=== PATIENT | female | born 1945 | race Caucasian/White ===

== ENCOUNTER 2025-05-10 13:10 | Inpatient (IN) | payer OTHER, SELFPAY ==
[2025-05-10] VITALS (14 sets, daily range): BP systolic 114–149; BP diastolic 56–80; PULSE 65–82; RESP 12–25; TEMP 36.6–36.9; O2SAT 94–100; BMI 19.5; BMI 21.3
--- NOTE | 2025-05-10 13:16 | DI.RAD.S_ITS ---
PROCEDURE: XR HIP W PEL IF DONE RT 2V INDICATIONS: fall down step TECHNIQUE: AP pelvis with lateral view(s) of the right hip(s). COMPARISON: None. FINDINGS: Bones: Displaced right femoral neck fracture. Pelvic ring appears intact. No suspicious bony lesions. Soft tissues: The visualized bowel gas pattern is normal. No suspicious soft tissue calcifications. IMPRESSION: Displaced right femoral neck fracture. Dictated by: Boo Casillas M.D. on 05/10/2025 at 14:23 Approved by: Boo Casillas M.D. on 05/10/2025 at 14:27
--- NOTE | 2025-05-10 13:19 | DI.RAD.S_ITS ---
PROCEDURE: XR SHOULDER RT MIN 2V INDICATIONS: fall TECHNIQUE: 2 views of the shoulder were acquired. COMPARISON: None. FINDINGS: Bones: Displaced and comminuted right proximal humeral head/neck fracture.. No suspicious bony lesions. Visualized ribs appear intact. Decreased osseous mineralization. Soft tissues: No suspicious soft tissue calcifications. IMPRESSION: Displaced and comminuted right proximal humeral head/neck fracture. Dictated by: Boo Casillas M.D. on 05/10/2025 at 14:21 Approved by: Boo Casillas M.D. on 05/10/2025 at 14:21
--- NOTE | 2025-05-10 13:37 | DI.RAD.S_ITS ---
PROCEDURE: XR HUMERUS RT 2V INDICATIONS: fall onto R arm TECHNIQUE: 2 views of the humerus were acquired. COMPARISON: None. FINDINGS: Bones: Comminuted displaced fracture of the proximal humeral head/neck. No suspicious bony lesions. Soft tissues: No suspicious soft tissue calcifications. IMPRESSION: Comminuted and displaced fracture of the proximal humeral head/neck. Dictated by: Boo Casillas M.D. on 05/10/2025 at 14:21 Approved by: Boo Casillas M.D. on 05/10/2025 at 14:22
--- NOTE | 2025-05-10 13:37 | DI.RAD.S_ITS ---
PROCEDURE: XR ELBOW RT MIN 3V INDICATIONS: fall onto R arm TECHNIQUE: 2 views of the elbow were acquired. COMPARISON: None. FINDINGS: Bones: No fractures or dislocations. No suspicious bony lesions. Soft tissues: No elbow joint effusion. No suspicious soft tissue calcifications. IMPRESSION: No acute osseous abnormality. If pain persists with conservative management, consider repeat x-ray in 10-14 days or cross-sectional imaging. Dictated by: Boo Casillas M.D. on 05/10/2025 at 14:28 Approved by: Boo Casillas M.D. on 05/10/2025 at 14:28
--- NOTE | 2025-05-10 13:43 | ED.FALL ---
HPI - Fall <Mell Rubin PA-C - Last Filed: 05/10/25 19:55> General Chief Complaint: Fall Stated Complaint: Fall, R Shoulder Pain Time Seen by Provider: 05/10/25 13:24 Source: patient and EMS Mode of arrival: EMS History of Present Illness HPI Narrative: This is an 79-year-old female hx hypothryroid, multiple myeloma, and osteoporosis who has kyphosis and chronic low back and joint pains on daily opioids per patient presenting with concern for right shoulder pain and right hip pain after she sustained a fall down 1 step today onto a hardwood floor. Patient normally ambulates with a cane. She was with 2 friends and 1 of them was showing her an area in the hotel they were in, patient states the floor all looked the same and she did not realize it was recessed and she went to take a step and stepped into thin air, fell landing on her right hip and right shoulder. She has not been able to get up and has not tried to bear weight since the incident she endorses significant right hip pain in the crease of her hip and also right shoulder pain in her upper humerus and the back of her right shoulder. She states she is not sure if she hit her head and would prefer not to have a CT scan of her head. She says she remembers falling and did not have any prodrome prior to the fall simply missed a step. Friend that was with her states that she very slightly bumped her head when she fell with no loss of consciousness. She denies any recent illness or other symptoms and but has been taking her regular medications as prescribed. Related Data Home Medications ?Medication ?Instructions ?Recorded ?Confirmed hydrocodone 5 mg-acetaminophen 325 tab PO pain 05/10/25 mg tablet lenalidomide 10 mg capsule PO 05/10/25 levothyroxine 75 mcg tablet 75 mcg PO DAILY 05/10/25 05/10/25 morphine 15 mg immediate release 15 mg PO BID PRN pain 05/10/25 05/10/25 tablet morphine 30 mg immediate release PO 05/10/25 tablet Allergies Allergy/AdvReac Type Severity Reaction Status Date / Time amoxicillin Allergy Rash Verified 05/10/25 13:22 ciprofloxacin Allergy Rash Verified 05/10/25 13:22 Penicillins Allergy Rash Verified 05/10/25 13:21 Sulfa (Sulfonamide Allergy Hives Verified 05/10/25 13:22 Antibiotics) Review of Systems <Mell Rubin PA-C - Last Filed: 05/10/25 19:55> Review of Systems Narrative: See HPI Patient History <Mell Rubin PA-C - Last Filed: 05/10/25 19:55> Social History household members: none lives independently: Yes Smoking Status: Never smoker alcohol intake: current Smoking Status: Former smoker Exam <Mell Rubin PA-C - Last Filed: 05/10/25 19:55> Narrative Exam Narrative: GENERAL: [79] year old patient appears stated age. Well-developed patient, in mild distress. HEAD: Atraumatic. Normocephalic. EYES: Pupils equal round and reactive. Extraocular motions intact. No scleral icterus. No injection or drainage. ENT: Nose without bleeding, purulent drainage. Airway patent. NECK: Trachea midline. Non tender CARDIOVASCULAR: Regular rate and rhythm without murmurs, gallops, or rubs. RESPIRATORY: Clear to auscultation. Breath sounds equal bilaterally. No wheezes, rales, or rhonchi. GASTROINTESTINAL: Abdomen soft, non-tender, nondistended. EXTREMITIES: There is significant tenderness to palpation over the proximal humerus, mild tenderness over the elbow, also tenderness over the posterior shoulder. Significant right hip pain/tenderness and pain in the inguinal crease. Right leg is slightly shortened and rotated out. Flexed with a pillow and blanket beneath it for comfort. Increased hip pain with dorsiflexion and plantar flexion. No edema or joint tenderness. Strong equal bilateral pedal pulses and radial pulses. BACK: There is midline low back tenderness the patient reports is baseline. Nontender without deformity or crepitance. No flank tenderness. NEURO: AOx3. Cranial nerves intact 2 through 12. SKIN: No rash or erythema of visible areas Initial Vital Signs Initial Vital Signs: Vital Signs Pulse Rate 65 05/10/25 13:12 Blood Pressure 139/71 05/10/25 13:12 Pulse Oximetry 100 05/10/25 13:12 <Liss Gay MD - Last Filed: 05/11/25 18:34> Initial Vital Signs Initial Vital Signs: Vital Signs Pulse Rate 65 05/10/25 13:12 Blood Pressure 139/71 05/10/25 13:12 Pulse Oximetry 100 05/10/25 13:12 Course <Mell Rubin PA-C - Last Filed: 05/10/25 19:55> Course Decision to Admit Date: 05/10/25 Decision to Admit time: 16:07 Orders Ordered: Acetaminophen (Acetaminophen 325 Mg Tablet) 650 mg PO Q6H PRN PRN Reason: Fever/Mild Pain (1-3) Last Admin: 05/11/25 15:31 Dose: 650 mg Documented By: REED Acetaminophen (Acetaminophen 325 Mg Tablet) 650 mg PO Q6H PRN PRN Reason: Fever/Mild Pain (1-3) Hydrocodone Bitart/Acetaminophen (Hydrocodone/Acet 5/325 Tablet) 1 tab PO Q4HR PRN PRN Reason: Pain, Moderate (4-6) Hydrocodone Bitart/Acetaminophen (Hydrocodone/Acet 5/325 Tablet) 2 tab PO Q4H PRN PRN Reason: Pain, Severe (7-10) Baclofen (Baclofen 10 Mg Tablet) 5 mg PO Q8H PRN PRN Reason: spasms Last Admin: 05/11/25 06:12 Dose: 5 mg Documented By: Admin: 05/10/25 22:56 Dose: 5 mg Documented By: ANDRIY Docusate Sodium (Docusate 100 Mg Capsule) 100 mg PO BID [facility] Enoxaparin Sodium (Enoxaparin 40 Mg/0.4 Ml Syringe) 40 mg SUBCUT DAILY [facility] Hydromorphone HCl (Hydromorphone 0.5 Mg Inj) 0.5 mg IV Q2H PRN PRN Reason: Pain, Severe (7-10) Sodium Chloride (Normal Saline 0.9%) 1,000 mls @ 100 mls/hr IV CONT CLAY Last Infusion: 05/11/25 14:51 Dose: Infused Documented By: Admin: 05/11/25 04:31 Dose: 100 mls/hr Documented By: Infusion: 05/11/25 04:31 Dose: Infused Documented By: Admin: 05/10/25 19:13 Dose: 100 mls/hr Documented By: MARY KATE Lactated Ringer's (Lactated Ringers) 1,000 mls @ 100 mls/hr IV CONT CLAY Last Admin: 05/11/25 14:58 Dose: 100 mls/hr Documented By: REED Cefazolin Sodium/Dextrose (Ancef) 100 mls @ 200 mls/hr IV Q8H [facility] Stop: 05/12/25 03:29 Levothyroxine Sodium (Levothyroxine 75 Mcg Tablet) 75 mcg PO 0600 [facility] Morphine Sulfate (Morphine Er 15 Mg Tablet) 15 mg PO BID [facility] Last Admin: 05/11/25 14:53 Dose: Not Given Documented By: REED Naloxone HCl (Naloxone 0.4 Mg/Ml Vial) 0.2 mg IV Q2MIN PRN PRN Reason: Opiate Reversal Naloxone HCl (Naloxone 0.4 Mg/Ml Vial) 0.2 mg IV Q2MIN PRN PRN Reason: Opiate Reversal Ondansetron HCl (Ondansetron 4 Mg/2 Ml Inj) 4 mg IV Q8HR PRN PRN Reason: Nausea And Vomiting Ondansetron HCl (Ondansetron 4 Mg/2 Ml Inj) 4 mg IV Q4HR PRN PRN Reason: Nausea And Vomiting Ondansetron HCl (Ondansetron 4 Mg Odt) 4 mg PO Q4HR PRN PRN Reason: Nausea Polyethylene Glycol (Polyethylene Glycol 3350 17 Gm Powd.Pack) 17 gm PO DAILY PRN PRN Reason: Constipation Discontinued Medications Bupivacaine HCl/Epinephrine Bitart (Bupivacaine 0.25% W/ Epi 30 Ml Vial) 60 ml INJ NOW ONE Stop: 05/11/25 11:55 Last Admin: 05/11/25 11:55 Dose: 45 ml Documented By: JUAN R Bupivacaine Liposome (Bupivacaine Liposome 266 Mg/20 Ml Vial) 266 mg INJ INTRA-OP ONE Stop: 05/11/25 08:54 Last Admin: 05/11/25 11:55 Dose: 266 mg Documented By: JUAN R Bupivacaine HCl 60 ml/ (Epinephrine HCl 0.3 mg) 0 ml INJ INTRA-OP ONE Stop: 05/11/25 08:54 Last Admin: 05/11/25 14:52 Dose: Not Given Documented By: REED Epinephrine HCl (Epinephrine 1 Mg/Ml) 1 mg IRR NOW ONE Stop: 05/11/25 11:59 Last Admin: 05/11/25 12:00 Dose: 1 mg Documented By: JUAN R Hydromorphone HCl (Hydromorphone 0.5 Mg Inj) 0.5 mg IV NOW ONE Stop: 05/10/25 13:38 Last Admin: 05/10/25 13:50 Dose: 0.5 mg Documented By: Hydromorphone HCl (Hydromorphone 1 Mg Inj) 0.5 mg IV Q1HR PRN PRN Reason: 7/10 pain or greater Last Admin: 05/10/25 17:47 Dose: 0.5 mg Documented By: Admin: 05/10/25 16:39 Dose: 0.5 mg Documented By: Admin: 05/10/25 14:56 Dose: 0.5 mg Documented By: AVELINO Hydromorphone HCl (Hydromorphone 0.5 Mg Inj) 0.5 mg IV Q2H PRN PRN Reason: Pain, Severe (7-10) Last Admin: 05/10/25 21:49 Dose: 0.5 mg Documented By: Admin: 05/10/25 19:13 Dose: 0.5 mg Documented By: MARY KATE Hydromorphone HCl (Hydromorphone 1 Mg Inj) 1 mg IV Q2H PRN PRN Reason: Pain, Severe (7-10) Last Admin: 05/11/25 08:54 Dose: 1 mg Documented By: Admin: 05/11/25 06:13 Dose: 1 mg Documented By: Admin: 05/11/25 04:27 Dose: 1 mg Documented By: ANDRIY Hydromorphone HCl (Hydromorphone 1 Mg Inj) 0 mg IV Q5MIN PRN PRN Reason: Pain, Moderate (4-6) Hydromorphone HCl (Hydromorphone 1 Mg Inj) 0 mg IV Q5MIN PRN PRN Reason: Pain, Mild (1-3) Hydromorphone HCl (Hydromorphone 1 Mg Inj) 0 mg IV Q5MIN PRN PRN Reason: Pain, Severe (7-10) Hydroxyzine HCl (Hydroxyzine Hcl 25 Mg Tablet) 25 mg PO NOW PRN PRN Reason: Pain, Mild (1-3) Acetaminophen (Ofirmev) 1,000 mg in 100 mls @ 400 mls/hr IV NOW ONE Stop: 05/11/25 09:05 Last Infusion: 05/11/25 09:35 Dose: Infused Documented By: Admin: 05/11/25 09:21 Dose: 400 mls/hr Documented By: CON Lactated Ringer's (Lactated Ringers) 1,000 mls @ 42 mls/hr IV CONT CLAY Last Admin: 05/11/25 12:51 Dose: 42 mls/hr Documented By: Infusion: 05/11/25 12:50 Dose: Infused Documented By: Admin: 05/11/25 10:00 Dose: 42 mls/hr Documented By: CON Cefazolin Sodium/Dextrose (Ancef) 100 mls @ 200 mls/hr IV NOW ONE Stop: 05/11/25 09:22 Last Infusion: 05/11/25 11:25 Dose: Infused Documented By: Admin: 05/11/25 11:20 Dose: 200 mls/hr Documented By: CHAR Cefazolin Sodium/Dextrose (Ancef) 100 mls @ 200 mls/hr IV Q8H [facility] Stop: 05/11/25 23:04 Last Admin: 05/11/25 15:58 Dose: Not Given Documented By: REED Lidocaine/Epinephrine (Lidocaine 1% W/Epi 10ml) 1 ml SUBCUT NOW ONE Stop: 05/11/25 11:57 Last Admin: 05/11/25 11:58 Dose: Not Given Documented By: Methocarbamol (Methocarbamol 500 Mg Tablet) 500 mg PO NOW ONE Stop: 05/10/25 16:31 Last Admin: 05/10/25 16:36 Dose: 500 mg Documented By: AVELINO Non-Formulary Medication (Dilauded) 1 mg IV Q2HR PRN PRN Reason: Pain, Severe (7-10) Oxycodone HCl (Oxycodone Ir 5 Mg Tablet) 5 mg PO Q3H PRN PRN Reason: Pain, Moderate (4-6) Last Admin: 05/11/25 04:27 Dose: 5 mg Documented By: Admin: 05/11/25 00:09 Dose: 5 mg Documented By: Admin: 05/10/25 19:12 Dose: 5 mg Documented By: MARY KATE Oxycodone HCl (Oxycodone Ir 5 Mg Tablet) 5 mg PO PACUNOW PRN PRN Reason: Mild or moderate pain Pregabalin (Pregabalin 75 Mg Capsule) 75 mg PO NOW ONE Stop: 05/11/25 08:54 Last Admin: 05/11/25 09:29 Dose: 75 mg Documented By: CON Tranexamic Acid (Tranexamic Acid 1,000 Mg Vial) 1,000 mg INJ INTRA-OP PRN PRN Reason: Bleeding Last Admin: 05/11/25 12:38 Dose: 1,000 mg Documented By: Admin: 05/11/25 11:33 Dose: 1,000 mg Documented By: CHAR Consultations Consultation #1: Spoke with Dr. Arriola, on-call for Orthopedics. She asks the patient be brought in under the hospitalist service and admitted likely will have surgery tomorrow for a slanted partial hip replacement. Sling for the impacted humeral fracture. Time: 15:34 Consultation #2: Spoke with Dr. Boston, hospitalist who accepts the patient. Time: 16:07 Vital Signs Vital signs: Vital Signs - 8 hr 05/10/25 13:12 05/10/25 13:12 05/10/25 13:20 Temperature 97.8 F Pulse Rate 65 67 Respiratory Rate 17 Blood Pressure 139/71 139/71 Pulse Oximetry 100 100 Oxygen Delivery Method Room Air 05/10/25 13:30 05/10/25 13:30 05/10/25 14:00 Temperature Pulse Rate 65 Respiratory Rate Blood Pressure 149/71 H 141/60 H Pulse Oximetry 99 Oxygen Delivery Method 05/10/25 14:00 05/10/25 14:30 05/10/25 14:30 Temperature Pulse Rate 66 67 Respiratory Rate Blood Pressure 132/62 Pulse Oximetry 99 100 Oxygen Delivery Method 05/10/25 15:00 05/10/25 15:00 05/10/25 15:30 Temperature Pulse Rate 70 Respiratory Rate 21 Blood Pressure 133/62 137/68 Pulse Oximetry 99 Oxygen Delivery Method 05/10/25 15:30 05/10/25 16:00 05/10/25 16:00 Temperature Pulse Rate 75 80 Respiratory Rate 21 Blood Pressure 118/63 Pulse Oximetry 97 96 Oxygen Delivery Method <Liss Gay MD - Last Filed: 05/11/25 18:34> Orders Ordered: Acetaminophen (Acetaminophen 325 Mg Tablet) 650 mg PO Q6H PRN PRN Reason: Fever/Mild Pain (1-3) Last Admin: 05/11/25 15:31 Dose: 650 mg Documented By: REED Acetaminophen (Acetaminophen 325 Mg Tablet) 650 mg PO Q6H PRN PRN Reason: Fever/Mild Pain (1-3) Hydrocodone Bitart/Acetaminophen (Hydrocodone/Acet 5/325 Tablet) 1 tab PO Q4HR PRN PRN Reason: Pain, Moderate (4-6) Hydrocodone Bitart/Acetaminophen (Hydrocodone/Acet 5/325 Tablet) 2 tab PO Q4H PRN PRN Reason: Pain, Severe (7-10) Baclofen (Baclofen 10 Mg Tablet) 5 mg PO Q8H PRN PRN Reason: spasms Last Admin: 05/11/25 06:12 Dose: 5 mg Documented By: Admin: 05/10/25 22:56 Dose: 5 mg Documented By: ANDRIY Docusate Sodium (Docusate 100 Mg Capsule) 100 mg PO BID [facility] Enoxaparin Sodium (Enoxaparin 40 Mg/0.4 Ml Syringe) 40 mg SUBCUT DAILY [facility] Hydromorphone HCl (Hydromorphone 0.5 Mg Inj) 0.5 mg IV Q2H PRN PRN Reason: Pain, Severe (7-10) Sodium Chloride (Normal Saline 0.9%) 1,000 mls @ 100 mls/hr IV CONT [facility] Last Infusion: 05/11/25 14:51 Dose: Infused Documented By: Admin: 05/11/25 04:31 Dose: 100 mls/hr Documented By: Infusion: 05/11/25 04:31 Dose: Infused Documented By: Admin: 05/10/25 19:13 Dose: 100 mls/hr Documented By: MARY KATE Lactated Ringer's (Lactated Ringers) 1,000 mls @ 100 mls/hr IV CONT [facility] Last Admin: 05/11/25 14:58 Dose: 100 mls/hr Documented By: REED Cefazolin Sodium/Dextrose (Ancef) 100 mls @ 200 mls/hr IV Q8H [facility] Stop: 05/12/25 03:29 Levothyroxine Sodium (Levothyroxine 75 Mcg Tablet) 75 mcg PO 0600 [facility] Morphine Sulfate (Morphine Er 15 Mg Tablet) 15 mg PO BID [facility] Last Admin: 05/11/25 14:53 Dose: Not Given Documented By: REED Naloxone HCl (Naloxone 0.4 Mg/Ml Vial) 0.2 mg IV Q2MIN PRN PRN Reason: Opiate Reversal Naloxone HCl (Naloxone 0.4 Mg/Ml Vial) 0.2 mg IV Q2MIN PRN PRN Reason: Opiate Reversal Ondansetron HCl (Ondansetron 4 Mg/2 Ml Inj) 4 mg IV Q8HR PRN PRN Reason: Nausea And Vomiting Ondansetron HCl (Ondansetron 4 Mg/2 Ml Inj) 4 mg IV Q4HR PRN PRN Reason: Nausea And Vomiting Ondansetron HCl (Ondansetron 4 Mg Odt) 4 mg PO Q4HR PRN PRN Reason: Nausea Polyethylene Glycol (Polyethylene Glycol 3350 17 Gm Powd.Pack) 17 gm PO DAILY PRN PRN Reason: Constipation Discontinued Medications Bupivacaine HCl/Epinephrine Bitart (Bupivacaine 0.25% W/ Epi 30 Ml Vial) 60 ml INJ NOW ONE Stop: 05/11/25 11:55 Last Admin: 05/11/25 11:55 Dose: 45 ml Documented By: JUAN R Bupivacaine Liposome (Bupivacaine Liposome 266 Mg/20 Ml Vial) 266 mg INJ INTRA-OP ONE Stop: 05/11/25 08:54 Last Admin: 05/11/25 11:55 Dose: 266 mg Documented By: JUAN R Bupivacaine HCl 60 ml/ (Epinephrine HCl 0.3 mg) 0 ml INJ INTRA-OP ONE Stop: 05/11/25 08:54 Last Admin: 05/11/25 14:52 Dose: Not Given Documented By: REED Epinephrine HCl (Epinephrine 1 Mg/Ml) 1 mg IRR NOW ONE Stop: 05/11/25 11:59 Last Admin: 05/11/25 12:00 Dose: 1 mg Documented By: JUAN R Hydromorphone HCl (Hydromorphone 0.5 Mg Inj) 0.5 mg IV NOW ONE Stop: 05/10/25 13:38 Last Admin: 05/10/25 13:50 Dose: 0.5 mg Documented By: Hydromorphone HCl (Hydromorphone 1 Mg Inj) 0.5 mg IV Q1HR PRN PRN Reason: 7/10 pain or greater Last Admin: 05/10/25 17:47 Dose: 0.5 mg Documented By: Admin: 05/10/25 16:39 Dose: 0.5 mg Documented By: Admin: 05/10/25 14:56 Dose: 0.5 mg Documented By: AVELINO Hydromorphone HCl (Hydromorphone 0.5 Mg Inj) 0.5 mg IV Q2H PRN PRN Reason: Pain, Severe (7-10) Last Admin: 05/10/25 21:49 Dose: 0.5 mg Documented By: Admin: 05/10/25 19:13 Dose: 0.5 mg Documented By: MARY KATE Hydromorphone HCl (Hydromorphone 1 Mg Inj) 1 mg IV Q2H PRN PRN Reason: Pain, Severe (7-10) Last Admin: 05/11/25 08:54 Dose: 1 mg Documented By: Admin: 05/11/25 06:13 Dose: 1 mg Documented By: Admin: 05/11/25 04:27 Dose: 1 mg Documented By: ANDRIY Hydromorphone HCl (Hydromorphone 1 Mg Inj) 0 mg IV Q5MIN PRN PRN Reason: Pain, Moderate (4-6) Hydromorphone HCl (Hydromorphone 1 Mg Inj) 0 mg IV Q5MIN PRN PRN Reason: Pain, Mild (1-3) Hydromorphone HCl (Hydromorphone 1 Mg Inj) 0 mg IV Q5MIN PRN PRN Reason: Pain, Severe (7-10) Hydroxyzine HCl (Hydroxyzine Hcl 25 Mg Tablet) 25 mg PO NOW PRN PRN Reason: Pain, Mild (1-3) Acetaminophen (Ofirmev) 1,000 mg in 100 mls @ 400 mls/hr IV NOW ONE Stop: 05/11/25 09:05 Last Infusion: 05/11/25 09:35 Dose: Infused Documented By: Admin: 05/11/25 09:21 Dose: 400 mls/hr Documented By: CON Lactated Ringer's (Lactated Ringers) 1,000 mls @ 42 mls/hr IV CONT CLAY Last Admin: 05/11/25 12:51 Dose: 42 mls/hr Documented By: Infusion: 05/11/25 12:50 Dose: Infused Documented By: Admin: 05/11/25 10:00 Dose: 42 mls/hr Documented By: CON Cefazolin Sodium/Dextrose (Ancef) 100 mls @ 200 mls/hr IV NOW ONE Stop: 05/11/25 09:22 Last Infusion: 05/11/25 11:25 Dose: Infused Documented By: Admin: 05/11/25 11:20 Dose: 200 mls/hr Documented By: CHAR Cefazolin Sodium/Dextrose (Ancef) 100 mls @ 200 mls/hr IV Q8H [facility] Stop: 05/11/25 23:04 Last Admin: 05/11/25 15:58 Dose: Not Given Documented By: REED Lidocaine/Epinephrine (Lidocaine 1% W/Epi 10ml) 1 ml SUBCUT NOW ONE Stop: 05/11/25 11:57 Last Admin: 05/11/25 11:58 Dose: Not Given Documented By: Methocarbamol (Methocarbamol 500 Mg Tablet) 500 mg PO NOW ONE Stop: 05/10/25 16:31 Last Admin: 05/10/25 16:36 Dose: 500 mg Documented By: AVELINO Non-Formulary Medication (Dilauded) 1 mg IV Q2HR PRN PRN Reason: Pain, Severe (7-10) Oxycodone HCl (Oxycodone Ir 5 Mg Tablet) 5 mg PO Q3H PRN PRN Reason: Pain, Moderate (4-6) Last Admin: 05/11/25 04:27 Dose: 5 mg Documented By: Admin: 05/11/25 00:09 Dose: 5 mg Documented By: Admin: 05/10/25 19:12 Dose: 5 mg Documented By: MARY KATE Oxycodone HCl (Oxycodone Ir 5 Mg Tablet) 5 mg PO PACUNOW PRN PRN Reason: Mild or moderate pain Pregabalin (Pregabalin 75 Mg Capsule) 75 mg PO NOW ONE Stop: 05/11/25 08:54 Last Admin: 05/11/25 09:29 Dose: 75 mg Documented By: CON Tranexamic Acid (Tranexamic Acid 1,000 Mg Vial) 1,000 mg INJ INTRA-OP PRN PRN Reason: Bleeding Last Admin: 05/11/25 12:38 Dose: 1,000 mg Documented By: Admin: 05/11/25 11:33 Dose: 1,000 mg Documented By: CHAR Vital Signs Vital signs: Vital Signs - 8 hr 05/10/25 13:12 05/10/25 13:12 05/10/25 13:20 Temperature 97.8 F Pulse Rate 65 67 Respiratory Rate 17 Blood Pressure 139/71 139/71 Pulse Oximetry 100 100 Oxygen Delivery Method Room Air 05/10/25 13:30 05/10/25 13:30 05/10/25 14:00 Temperature Pulse Rate 65 Respiratory Rate Blood Pressure 149/71 H 141/60 H Pulse Oximetry 99 Oxygen Delivery Method 05/10/25 14:00 05/10/25 14:30 05/10/25 14:30 Temperature Pulse Rate 66 67 Respiratory Rate Blood Pressure 132/62 Pulse Oximetry 99 100 Oxygen Delivery Method 05/10/25 15:00 05/10/25 15:00 05/10/25 15:30 Temperature Pulse Rate 70 Respiratory Rate 21 Blood Pressure 133/62 137/68 Pulse Oximetry 99 Oxygen Delivery Method 05/10/25 15:30 05/10/25 16:00 05/10/25 16:00 Temperature Pulse Rate 75 80 Respiratory Rate 21 Blood Pressure 118/63 Pulse Oximetry 97 96 Oxygen Delivery Method MDM - Fall <Mell Rubin PA-C - Last Filed: 05/10/25 19:55> Differential Diagnosis Differential diagnosis: Likely other (Hip fracture, fall from standing, humeral fracture) Medical Records Medical records narrative: Records in route from [place] Lab Data Attestation: I reviewed the patient's lab results. 05/10/25 13:15 05/10/25 13:15 Labs: Lab Results 05/10/25 Range/Units 13:15 WBC 5.2 (4.5-11.0) X10^3/uL RBC 3.29 L (4.0-5.2) X10^6/uL Hgb 11.1 L (12.0-16.0) g/dL Hct 32.6 L (36-46) % MCV 99.0 (80-100) fL MCH 33.7 (26-34) PG MCHC 34.0 (30-36) % RDW 15.9 H (11.6-14.8) % Plt Count 161 (150-400) X10^3/uL Neut % (Auto) 64.3 (50-75) % Lymph % (Auto) 27.2 (25-40) % Creek % (Auto) 6.5 (3-14) % Eos % (Auto) 1.3 L (2-4) % Baso % (Auto) 0.7 (0-2) % Neut # (Auto) 3300 (7817-3107) /uL Lymph # (Auto) 1400 (8870-0471) /uL Creek # (Auto) 300 (0-900) /uL Eos # (Auto) 100 (0-450) /uL Baso # (Auto) 0 (0-100) /uL PT 11.5 (9.4-12.5) SECONDS INR 1.0 (0.9-1.3) APTT 24 L (25.1-36.5) SECONDS Sodium 135 L (137-145) mmol/L Potassium 3.5 (3.4-5.1) mmol/L Chloride 102 (98-107) mmol/L Carbon Dioxide 23 (22-32) mmol/L BUN 20 H (7-17) mg/dL Creatinine 0.92 (0.52-1.04) mg/dL Estimated GFR > 60 (>60) mL/min BUN/Creatinine Ratio 21.7 (6-22) Glucose 123 H (70-99) mg/dL Calcium 8.4 (8.4-10.2) mg/dL Total Bilirubin 1.3 (0.2-1.3) mg/dL AST 26 (14-36) IU/L ALT 22 (<35) IU/L Alkaline Phosphatase 46 (38-126) U/L Total Protein 6.3 (6.3-8.2) g/dL Albumin 4.1 (3.5-5.0) g/dL Globulin 2.2 (1.7-4.1) g/dL Albumin/Globulin Ratio 1.9 (1.0-2.8) Ethyl Alcohol < 10 (<10) mg/dL Imaging Data Extremity x-ray #1: My Impression: Agree with Radiology interpretation Radiologist's Impression: [address] [address] XRay Report Signed Patient: Susana Galloway MR#: [id number] : 1945 Acct:[id number] Age/Sex: 79 / F Date of Service: 05/10/25 Loc: ED Accession Number: [id number] Procedure: XR humerus RT 2V Ordering Provider: Mell Rubin PA-C PROCEDURE: XR HUMERUS RT 2V INDICATIONS: fall onto R arm TECHNIQUE: 2 views of the humerus were acquired. COMPARISON: None. FINDINGS: Bones: Comminuted displaced fracture of the proximal humeral head/neck. No suspicious bony lesions. Soft tissues: No suspicious soft tissue calcifications. IMPRESSION: Comminuted and displaced fracture of the proximal humeral head/neck. Dictated by: Boo Casillas M.D. on 05/10/2025 at 14:21 Approved by: Boo Casillas M.D. on 05/10/2025 at 14:22 Extremity x-ray #2: My Impression: Agree with Radiology interpretation Radiologist's Impression: [address] [address] XRay Report Signed Patient: Susana Galloway MR#: [id number] : 1945 Acct:[id number] Age/Sex: 79 / F Date of Service: 05/10/25 Loc: ED Accession Number: [id number] Procedure: XR hip w pel RT 2V Ordering Provider: Liss Gay MD PROCEDURE: XR HIP W PEL IF DONE RT 2V INDICATIONS: fall down step TECHNIQUE: AP pelvis with lateral view(s) of the right hip(s). COMPARISON: None. FINDINGS: Bones: Displaced right femoral neck fracture. Pelvic ring appears intact. No suspicious bony lesions. Soft tissues: The visualized bowel gas pattern is normal. No suspicious soft tissue calcifications. IMPRESSION: Displaced right femoral neck fracture. Dictated by: Boo Casillas M.D. on 05/10/2025 at 14:23 Approved by: Boo Casillas M.D. on 05/10/2025 at 14:27 Extremity x-ray #3: My Impression: Agree with Radiology interpretation Radiologist's Impression: [address] [address] XRay Report Signed Patient: Susana Galloway MR#: [id number] : 1945 Acct:[id number] Age/Sex: 79 / F Date of Service: 05/10/25 Loc: ED Accession Number: [id number] Procedure: XR elbow RT min 3V Ordering Provider: Mell Rubin PA-C PROCEDURE: XR ELBOW RT MIN 3V INDICATIONS: fall onto R arm TECHNIQUE: 2 views of the elbow were acquired. COMPARISON: None. FINDINGS: Bones: No fractures or dislocations. No suspicious bony lesions. Soft tissues: No elbow joint effusion. No suspicious soft tissue calcifications. IMPRESSION: No acute osseous abnormality. If pain persists with conservative management, consider repeat x-ray in 10-14 days or cross-sectional imaging. Dictated by: Boo Casillas M.D. on 05/10/2025 at 14:28 Approved by: Boo Casillas M.D. on 05/10/2025 at 14:28 shoulder XR: My Impression: Agree with Radiology interpretation Radiologist's Impression: [address] [address] XRay Report Signed Patient: Susana Galloway MR#: [id number] : 1945 Acct:[id number] Age/Sex: 79 / F Date of Service: 05/10/25 Loc: ED Accession Number: [id number] Procedure: XR shoulder RT 2+ views Ordering Provider: Liss Gay MD PROCEDURE: XR SHOULDER RT MIN 2V INDICATIONS: fall TECHNIQUE: 2 views of the shoulder were acquired. COMPARISON: None. FINDINGS: Bones: Displaced and comminuted right proximal humeral head/neck fracture.. No suspicious bony lesions. Visualized ribs appear intact. Decreased osseous mineralization. Soft tissues: No suspicious soft tissue calcifications. IMPRESSION: Displaced and comminuted right proximal humeral head/neck fracture. Dictated by: Boo Casillas M.D. on 05/10/2025 at 14:21 Approved by: Boo Casillas M.D. on 05/10/2025 at 14:21 [facility] Narrative Medical decision making narrative: This is an 79-year-old female presenting with concern for a fall from standing, mechanical from about an 8 in high step onto a wood floor landing on her right shoulder and hip. Brought in by EMS. X-rays show a impacted humeral neck fracture and a displaced right femoral neck for fracture. Pulses are intact and range of motion reduced in the affected extremities 2nd to pain and injury. Patient received Dilaudid in the emergency department to treat pain, chronically takes opioid pain medication. Her exam did not suggest other injury. She did hit her head very lightly according to her friend who witnessed it but had no loss of consciousness. Impact was almost fully taken by her shoulder and hip. Patient declined a head and neck CT. She had no midline neck tenderness and no cranial nerve deficits. Labs obtained were unremarkable including coags. Consult orthopedic on-call physician Dr. Lutz who advises bring the patient in with anticipated surgery for her hip tomorrow and NPO at midnight. And bring in under hospitalist. Hospitalist contacted and patient was admitted to Dr. Boston. <Liss Gay MD - Last Filed: 05/11/25 18:34> Lab Data Labs: Lab Results 05/10/25 Range/Units 13:15 WBC 5.2 (4.5-11.0) X10^3/uL RBC 3.29 L (4.0-5.2) X10^6/uL Hgb 11.1 L (12.0-16.0) g/dL Hct 32.6 L (36-46) % MCV 99.0 (80-100) fL MCH 33.7 (26-34) PG MCHC 34.0 (30-36) % RDW 15.9 H (11.6-14.8) % Plt Count 161 (150-400) X10^3/uL Neut % (Auto) 64.3 (50-75) % Lymph % (Auto) 27.2 (25-40) % [place] % (Auto) 6.5 (3-14) % Eos % (Auto) 1.3 L (2-4) % Baso % (Auto) 0.7 (0-2) % Neut # (Auto) 3300 (4080-8651) /uL Lymph # (Auto) 1400 (6775-3905) /uL [place] # (Auto) 300 (0-900) /uL Eos # (Auto) 100 (0-450) /uL Baso # (Auto) 0 (0-100) /uL PT 11.5 (9.4-12.5) SECONDS INR 1.0 (0.9-1.3) APTT 24 L (25.1-36.5) SECONDS Sodium 135 L (137-145) mmol/L Potassium 3.5 (3.4-5.1) mmol/L Chloride 102 (98-107) mmol/L Carbon Dioxide 23 (22-32) mmol/L BUN 20 H (7-17) mg/dL Creatinine 0.92 (0.52-1.04) mg/dL Estimated GFR > 60 (>60) mL/min BUN/Creatinine Ratio 21.7 (6-22) Glucose 123 H (70-99) mg/dL Calcium 8.4 (8.4-10.2) mg/dL Total Bilirubin 1.3 (0.2-1.3) mg/dL AST 26 (14-36) IU/L ALT 22 (<35) IU/L Alkaline Phosphatase 46 (38-126) U/L Total Protein 6.3 (6.3-8.2) g/dL Albumin 4.1 (3.5-5.0) g/dL Globulin 2.2 (1.7-4.1) g/dL Albumin/Globulin Ratio 1.9 (1.0-2.8) Ethyl Alcohol < 10 (<10) mg/dL Discharge Plan Departure Patient Disposition: Admitted As Inpatient Clinical Impression: Closed hip fracture Qualifiers: Encounter type: initial encounter Laterality: right Qualified Code(s): S72.001A - Fracture of unspecified part of neck of right femur, initial encounter for closed fracture Fx humeral neck Qualifiers: Encounter type: initial encounter Fracture type: closed Laterality: right Qualified Code(s): S42.211A - Unspecified displaced fracture of surgical neck of right humerus, initial encounter for closed fracture Fall from standing Qualifiers: Encounter type: initial encounter Qualified Code(s): W19.XXXA - Unspecified fall, initial encounter Admit Date/Time: 05/10/25 16:14 Admit Provider: Dimitris Boston ED Sign-out <Liss Gay MD - Last Filed: 05/11/25 18:34> Cosign ED Attending Cosignature Attestation: I was immediately available in the department for consultation throughout this patient's visit. Liss Gay MD
[2025-05-10] MEDS: HYDROMORPHONE 0.5 MG INJ IV ×3 (13:50→21:49)
[2025-05-10 14:30] LABS: Add Manual Diff / Slide Review NO; Hematocrit 32.6 % (36-46); Hemoglobin 11.1 g/dL (12.0-16.0); Lymphocytes Absolute Auto 1400 /uL (1100-4500); Mean Corpuscular HGB Conc 34.0 % (30-36); Mean Corpuscular Hemoglobin 33.7 PG (26-34); Mean Corpuscular Volume 99.0 fL (80-100); Platelet Count 161 X10^3/uL (150-400)
[2025-05-10 14:32] LABS: INR 1.0 (0.9-1.3); Prothrombin Time 11.5 SECONDS (9.4-12.5)
[2025-05-10 14:35] LABS: PTT Partial Thromboplastin Tim 24 SECONDS (25.1-36.5)
[2025-05-10 14:52] LABS: Alanine Aminotransferase 22 IU/L (<35); Albumin 4.1 g/dL (3.5-5.0); Albumin Globulin Ratio 1.9 (1.0-2.8); Alkaline Phosphatase 46 U/L (38-126); Blood Urea Nitrogen 20 mg/dL (7-17); Calcium 8.4 mg/dL (8.4-10.2); Carbon Dioxide 23 mmol/L (22-32); Chloride 102 mmol/L (98-107); Estimated Glomerular Filt Rate > 60 mL/min (>60); Ethanol (ETOH) < 10 mg/dL (<10); Globulin 2.2 g/dL (1.7-4.1); Glucose 123 mg/dL (70-99); HEMOLYSIS < 15 (0-50); Potassium 3.5 mmol/L (3.4-5.1); Sodium 135 mmol/L (137-145); Total Protein 6.3 g/dL (6.3-8.2)
[2025-05-10] MEDS: HYDROMORPHONE 1 MG INJ 0.5 MG IV ×3 (14:56→17:47)
--- NOTE | 2025-05-10 19:02 | PM.HP.1 ---
History of Present Illness History of Present Illness Date Patient Seen: 05/10/25 Chief complaint: Fall, R Shoulder Pain Narrative: This is a pleasant 79-year-old female with history of multiple myeloma and hypothyroidism who is visiting a friend in [place]. She lives in the [place] area. She had a ground level fall and broke her right hip and proximal humerus. The patient was given pain medication in the emergency department, and Orthopedics was consulted. The plan is for operative repair with a hemiarthroplasty on May 11. The patient will be nothing by mouth at midnight. She denies any other injuries or recent illnesses or symptoms. She does note that she was do not resuscitate. She was 2 daughters in [place]. [facility] Social History Smoking Status: Former smoker Meds Home Medications and Allergies Home Medications ?Medication ?Instructions ?Recorded ?Confirmed ?Type hydrocodone 5 mg-acetaminophen 325 tab PO pain 05/10/25 History mg tablet lenalidomide 10 mg capsule PO 05/10/25 History levothyroxine 75 mcg tablet 75 mcg PO DAILY 05/10/25 05/10/25 History morphine 15 mg immediate release 15 mg PO BID PRN pain 05/10/25 05/10/25 History tablet morphine 30 mg immediate release PO 05/10/25 History tablet Allergies Allergy/AdvReac Type Severity Reaction Status Date / Time amoxicillin Allergy Rash Verified 05/10/25 13:22 ciprofloxacin Allergy Rash Verified 05/10/25 13:22 Penicillins Allergy Rash Verified 05/10/25 13:21 Sulfa (Sulfonamide Allergy Hives Verified 05/10/25 13:22 Antibiotics) Review of Systems Review of Systems Narrative: All else reviewed and otherwise unremarkable except as noted in the history and physical. Exam Vital Signs (past 8 hours): - 05/10/25 13:12 05/10/25 13:12 05/10/25 13:20 Temperature 97.8 F Pulse Rate 65 67 Respiratory Rate 17 Blood Pressure 139/71 139/71 Pulse Oximetry 100 100 Oxygen Delivery Method Room Air 05/10/25 13:30 05/10/25 13:30 05/10/25 14:00 Temperature Pulse Rate 65 Respiratory Rate Blood Pressure 149/71 H 141/60 H Pulse Oximetry 99 Oxygen Delivery Method 05/10/25 14:00 05/10/25 14:30 05/10/25 14:30 Temperature Pulse Rate 66 67 Respiratory Rate Blood Pressure 132/62 Pulse Oximetry 99 100 Oxygen Delivery Method 05/10/25 15:00 05/10/25 15:00 05/10/25 15:30 Temperature Pulse Rate 70 Respiratory Rate 21 Blood Pressure 133/62 137/68 Pulse Oximetry 99 Oxygen Delivery Method 05/10/25 15:30 05/10/25 16:00 05/10/25 16:00 Temperature Pulse Rate 75 80 Respiratory Rate 21 Blood Pressure 118/63 Pulse Oximetry 97 96 Oxygen Delivery Method 05/10/25 16:30 05/10/25 16:30 05/10/25 17:00 Temperature Pulse Rate 80 Respiratory Rate Blood Pressure 114/59 L 114/56 L Pulse Oximetry 98 Oxygen Delivery Method 05/10/25 17:00 05/10/25 17:30 05/10/25 17:30 Temperature Pulse Rate 79 79 Respiratory Rate 25 H 16 Blood Pressure 119/60 Pulse Oximetry 97 96 Oxygen Delivery Method 05/10/25 18:00 05/10/25 18:00 05/10/25 18:30 Temperature Pulse Rate 81 79 Respiratory Rate 12 Blood Pressure 122/80 Pulse Oximetry 96 94 Oxygen Delivery Method 05/10/25 18:30 Temperature Pulse Rate Respiratory Rate Blood Pressure 126/65 Pulse Oximetry Oxygen Delivery Method Oxygen Delivery Method Room Air Narrative Exam Narrative: NAD, alert and oriented, fluent speech, calm. Normocephalic skull, EOMI, anicteric sclera, symmetric pupils. Oropharynx unremarkable, no droop. Neck supple, midline trachea, no adenopathy. Lungs clear, normal rate and effort. Heart regular, no murmur gallop or rub. Abdomen is soft, non distended and non tender. Extremities are free of edema. Skin is free of rash or lesions. Joints are not swollen or deformed. Judgment appears to be normal. Significant swelling and ecchymosis around the right shoulder. Objective Imaging Multiple studies:: Radiologist's impression: Shoulder x-ray: Comminuted and displaced fracture of the proximal humeral head/neck. Hip x-ray: Displaced right femoral neck fracture. Labs 05/10/25 13:15 05/10/25 13:15 Labs: Laboratory Results - last 24 hr 05/10/25 13:15 WBC 5.2 RBC 3.29 L Hgb 11.1 L Hct 32.6 L MCV 99.0 MCH 33.7 MCHC 34.0 RDW 15.9 H Plt Count 161 Neut % (Auto) 64.3 Lymph % (Auto) 27.2 [place] % (Auto) 6.5 Eos % (Auto) 1.3 L Baso % (Auto) 0.7 Neut # (Auto) 3300 Lymph # (Auto) 1400 [place] # (Auto) 300 Eos # (Auto) 100 Baso # (Auto) 0 PT 11.5 INR 1.0 APTT 24 L Sodium 135 L Potassium 3.5 Chloride 102 Carbon Dioxide 23 BUN 20 H Creatinine 0.92 Estimated GFR > 60 BUN/Creatinine Ratio 21.7 Glucose 123 H Calcium 8.4 Total Bilirubin 1.3 AST 26 ALT 22 Alkaline Phosphatase 46 Total Protein 6.3 Albumin 4.1 Globulin 2.2 Albumin/Globulin Ratio 1.9 Ethyl Alcohol < 10 Assessment & Plan Assessment & Plan narrative: 1. Right femoral neck fracture, present on admission and active. 2. Right humerus fracture, present on admission and active. 3. Ground level fall prior to admission, stable. 4. Multiple myeloma, stable. 5. Hypothyroidism, stable. Plan: -IV fluids and pain medications. NPO at midnight. -orthopedics has been consulted, anticipate hemiarthroplasty tomorrow. -DVT prophylaxis will start after surgery. -we will resume routine medications tomorrow. DNR, confirmed time of admission. Anticipate 2 midnights in the hospital, supports inpatient status. Proxy decision makers are [facility], in [place]. Time-Based Coding :: 35 min spent with patient and on the chart (including review of chart, obtaining history, exam, reviewing outside data, placing orders, documenting exam and treatment plan, and counseling patient) on 05/10. Quality MIPS - Admit I confirm the patient?s Advance Care Plan is present, Code status is documented, Surrogate decision maker is in patient?s record [If Yes, STOP here]: Yes The patient?s Advance Care plan is not present because I confirmed today that the patient does not wish or was not able to name a surrogate decision maker or provide an Advance Care Plan.: Yes
[2025-05-10] MEDS: OXYCODONE IR 5 MG TABLET PO (19:12)
[2025-05-10] MEDS: SODIUM CHLORIDE 0.9% 1,000 ML 100 ML IV (19:13)
[2025-05-10] MEDS: BACLOFEN 10 MG TABLET 5 MG PO (22:56)
[2025-05-11] VITALS (22 sets, daily range): BP systolic 86–188; BP diastolic 43–77; PULSE 14–89; RESP 11–99; TEMP 36.4–37.4; O2SAT 4–100; BMI 21.3
--- NOTE | 2025-05-11 | DI.RAD.S_ITS ---
PROCEDURE: XR PELVIS 1-2V INDICATIONS: POST OP TECHNIQUE: 1 view(s) of the pelvis acquired. COMPARISON: [facility], , XR PELVIS 1-2V, 05/11/2025, 11:56. FINDINGS AND IMPRESSION: Right hip arthroplasty appears to be in expected position. Mild left hip arthrosis also present. Surrounding postoperative soft tissue changes are present. Dictated by: Kilo King M.D. on 05/11/2025 at 13:30 Approved by: Kilo King M.D. on 05/11/2025 at 13:31
[2025-05-11] MEDS: OXYCODONE IR 5 MG TABLET PO ×2 (00:09→04:27)
[2025-05-11] MEDS: HYDROMORPHONE 1 MG INJ IV ×3 (04:27→08:54)
[2025-05-11] MEDS: SODIUM CHLORIDE 0.9% 1,000 ML 100 ML IV (04:31)
[2025-05-11] MEDS: BACLOFEN 10 MG TABLET 5 MG PO (06:12)
--- NOTE | 2025-05-11 06:36 | PC.NURSE ---
Addendum entered by Vera Espinoza R.N. 05/11/25 07:02: 05/10- 19:45 It was reported to me that patient refused lab draw for type and screen. 05/11/25- 07:00- Patient refused 2nd screen for blood. Original Note: 05/10/25- 19:30 Assumed care of patient at 19:30. Pt refused removal of transfer sheet r/t pain, stating No, why do I have to do it tonight when I am going to surgery tomorrow, education provided on removal of sheet. Refused skin check, noted large purple bruise to right shoulder. Refused catheter care in the morning. Pain medications given per JAN.
--- NOTE | 2025-05-11 08:53 | DI.RAD.S_ITS ---
PROCEDURE: XR PELVIS 1-2V INDICATIONS: surgery INTER OP TECHNIQUE: 1 view of the lower pelvis acquired. COMPARISON: None. FINDINGS AND IMPRESSION: Right hip operative images, currently with the femoral stem in place. Please see operative note for full details. Dictated by: Kilo King M.D. on 05/11/2025 at 11:49 Approved by: Kilo King M.D. on 05/11/2025 at 11:50
--- NOTE | 2025-05-11 08:53 | PM.CN ---
History of Present Illness Consult details Date Patient Seen: 05/11/25 Time Patient Seen: 08:53 Chief complaint: Fall, R Shoulder Pain Reason for consult: Right femoral neck fracture, right proximal humerus fracture Requesting provider: Mell Rubin Narrative: The patient was a 79-year-old right-hand dominant female visiting from [place] with a friend in [place] that had a ground level fall onto her right side on May 10, 2025 sustained injury to her right hip and right shoulder. She was brought to [facility] Emergency room and found to have a right displaced femoral neck fracture and a right proximal humerus fracture. She also has multiple myeloma. She is currently treated with Revlimid for her multiple myeloma. She has chronic anemia and chronic pain and at baseline takes morphine sulfate 15 mg b.i.d. and 3-4 Glentana 5/325 during the day. She has daughters and [place] that can help with her care. One will be flying to [place] to help. She endorses pain in her shoulder and humerus and right hip. Denies fevers chills nausea vomiting shortness for breath. Does state she has difficulty tolerating anti-inflammatories with a bother her GI tract. Recently her Revlimid has been decreased to every other day because it was ?working too well? this is managed by an oncologist in [place] Previously lived independently and [place] ambulated without assistive devices in the house and used a cane when she left the house. Meds Home Medications and Allergies Home Medications ?Medication ?Instructions ?Recorded ?Confirmed ?Type hydrocodone 5 mg-acetaminophen 325 tab PO pain 05/10/25 History mg tablet lenalidomide 10 mg capsule PO 05/10/25 History levothyroxine 75 mcg tablet 75 mcg PO DAILY 05/10/25 05/10/25 History morphine 15 mg immediate release 15 mg PO BID PRN pain 05/10/25 05/10/25 History tablet morphine 30 mg immediate release PO 05/10/25 History tablet Allergies Allergy/AdvReac Type Severity Reaction Status Date / Time amoxicillin Allergy Rash Verified 05/10/25 13:22 ciprofloxacin Allergy Rash Verified 05/10/25 13:22 Penicillins Allergy Rash Verified 05/10/25 13:21 Sulfa (Sulfonamide Allergy Hives Verified 05/10/25 13:22 Antibiotics) Review of Systems Review of Systems Narrative: Multiple myeloma, chronic pain on daily narcotic medication long and immediate action Exam Vital Signs (past 8 hours): - 05/11/25 08:00 Temperature 99.3 F Pulse Rate 78 Respiratory Rate 17 Blood Pressure 188/59 H Pulse Oximetry 97 Oxygen Flow Rate 0 Oxygen Delivery Method Room Air Oxygen Flow Rate 0 Narrative Exam Narrative: Alert and oriented female in no acute distress lying in hospital bed Lungs clear to auscultation Heart regular rate and rhythm Right hip flexed and rotated shortened. Demonstrates active dorsiflexion and plantar flexion. Palpable dorsalis pedis pulse. Calf and thigh soft. Knee without effusion. Pain along the proximal hip and groin motor exam deferred due to known fracture. Right upper extremity demonstrates wrist and finger range of motion. Forearm is soft and hand without swelling. There is bruising of the proximal upper arm near the shoulder in the area of the known proximal humerus fracture. No deformity of the clavicle. Tenderness of the proximal humerus. Palpable radial pulse. Demonstrates finger and thumb flexion and extension and interosseous function. No restrictions in motion of the left lower extremity or left upper extremity. Objective Imaging AP pelvis and right hip x-ray: My impression: Displaced femoral neck fracture right Radiologist's impression: Displaced femoral neck fracture right Right shoulder x-ray: My impression: Right moderate displaced proximal humerus fracture comminuted Labs 05/10/25 13:15 05/10/25 13:15 Labs: Laboratory Results - last 24 hr 05/10/25 05/11/25 13:15 05:29 WBC 5.2 RBC 3.29 L Hgb 11.1 L Hct 32.6 L MCV 99.0 MCH 33.7 MCHC 34.0 RDW 15.9 H Plt Count 161 Neut % (Auto) 64.3 Lymph % (Auto) 27.2 [place] % (Auto) 6.5 Eos % (Auto) 1.3 L Baso % (Auto) 0.7 Neut # (Auto) 3300 Lymph # (Auto) 1400 [place] # (Auto) 300 Eos # (Auto) 100 Baso # (Auto) 0 PT 11.5 INR 1.0 APTT 24 L Sodium 135 L Potassium 3.5 Chloride 102 Carbon Dioxide 23 BUN 20 H Creatinine 0.92 Estimated GFR > 60 BUN/Creatinine Ratio 21.7 Glucose 123 H Calcium 8.4 Total Bilirubin 1.3 AST 26 ALT 22 Alkaline Phosphatase 46 Total Protein 6.3 Albumin 4.1 Globulin 2.2 Albumin/Globulin Ratio 1.9 Ethyl Alcohol < 10 Blood Type O Positive Antibody Screen Negative [facility] Comment: Multiple myeloma Chronic pain Social History household members: none lives independently: Yes Tobacco & Substance Use Smoking Status: Never smoker alcohol intake: current Assessment & Plan Assessment and plan (1) Fx humeral neck: Qualifiers: Encounter type: initial encounter Fracture type: closed Laterality: right Qualified Code(s): S42.211A - Unspecified displaced fracture of surgical neck of right humerus, initial encounter for closed fracture Status: Acute (2) Closed hip fracture: Qualifiers: Encounter type: initial encounter Laterality: right Qualified Code(s): S72.001A - Fracture of unspecified part of neck of right femur, initial encounter for closed fracture Status: Acute (3) Osteoporotic hip fracture: Qualifiers: Encounter type: initial encounter Laterality: right Qualified Code(s): M80.051A - Age-related osteoporosis with current pathological fracture, right femur, initial encounter for fracture Status: Acute (4) Multiple myeloma: Qualifiers: Multiple myeloma remission status: unspecified Qualified Code(s): C90.00 - Multiple myeloma not having achieved remission Status: Acute Plan Patient was displaced comminuted fracture of her right proximal humerus. Discussed alignment is appropriate for initial nonoperative treatment in a sling for this fracture but discussed over time these fractures can displace or collapse and may go onto requiring surgical treatment but at this point treatment nonoperatively in a sling is appropriate but we will need to be followed with serial radiographs on an outpatient basis. The patient has a displaced femoral neck fracture of her right hip. This fracture is indicated for surgery with a cemented hemiarthroplasty to allow mobilization weight-bearing and pain control. We discussed the risks and benefits of the procedure. Discussed it is designed to allow mobilization and help reduce the complications associated with prolonged immobility. The patient has chronic pain and multiple myeloma she has been on chronic pain medication. We will restart these medications discussed she may need higher level of medications as well. She previously states she was not tolerated oxycodone well but does better with Glentana and takes morphine sulfate twice a day at baseline. She may need help with discharge whether that is traveling with family for help back to [place] or short-term long term stay discussed she would work with physical therapy after surgery on her mobilization and we would see how her progresses. She will be weightbear as tolerated with a assistive device following the hip surgery but will require sling use on the right upper extremity. The risks and benefits of the procedure have been discussed with the patient and given the opportunity to ask questions. The risks of surgery include but are not limited to infection, malunion, nonunion, persistence of pain, damage to nerves and blood vessels, posttraumatic arthritis, DVT, PE, coardiopulmonary complications and . The patient expressed a thorough understanding of the risks and benefits of surgery and has elected to proceed. Consent was signed in the office today. High level medical decision-making. Inpatient admission required. Anticipate 2-3 days in the hospital Time-Based Coding :: [TOTAL MINUTES] spent with patient and on the chart (including review of chart, obtaining history, exam, reviewing outside data, placing orders, documenting exam and treatment plan, and counseling patient) on [DATE].
[2025-05-11] MEDS: ACETAMINOPHEN IV 1,000 MG/100 ML VIAL 400 MG IV (09:21)
[2025-05-11] MEDS: PREGABALIN 75 MG CAPSULE PO (09:29)
--- NOTE | 2025-05-11 09:35 | P.OP_ITS ---
Operative Date/Time/Diagnoses Date of procedure: 05/11/25 Time of procedure: 10:30 Pre-op diagnosis: Right closed femoral neck fracture, right osteoporotic hip fracture, right proximal humerus fracture, multiple myeloma Post-op diagnosis: same Procedure & Clinicians Procedure: 1. Cemented hemiarthroplasty right hip for hip fracture CPT code 86997 2. Closed treatment right proximal humerus fracture without manipulation CPT code 39551 modifier 59 for separate site Same procedure(s) as scheduled: Yes Indications: The patient was an 79-year-old right-hand dominant female with multiple myeloma that had a ground level fall onto the right side she sustained a comminuted right proximal humerus fracture and a displaced right femoral neck fracture. She was indicated for operative treatment of her right femoral neck fracture and nonoperative treatment of her proximal humerus fracture. The risks and benefits of the procedure have been discussed with the patient and given the opportunity to ask questions. The risks of surgery include but are not limited to infection, malunion, fracture, nonunion, leg length discrepancy, persistence of pain, damage to nerves and blood vessels, posttraumatic arthritis, need for additional procedures, DVT, PE, cardiopulmonary complications and . The patient expressed a thorough understanding of the risks and benefits of surgery and has elected to proceed. Consent was signed. During the operation, the services of a physician supply assistant were medically indicated and necessary to provide the exposure of the operative site for the surgical procedure and to maintain the limb in a proper position to carry out the operation safely and efficiently. Without a qualified content assistant being present this would extended the operative procedure and made the procedure technically more difficult to perform. Surgeon: Kasandra Arriola Stock Broker Supervisor: Gian Collazo Anesthesia Type: General and Local Operative Notes Findings: Comminuted right proximal humerus fracture, impacted, appropriate alignment for initial nonoperative treatment in a sling. Displaced right femoral neck fracture of the right hip indicated for surgical fixation with hemiarthroplasty Closure Type: primary Specimen(s): none sent Prosthetic devices, grafts, tissues, transplants, or devices: [employer] [employer] Nephew Synergy cemented hemiarthroplasty Synergy stem cemented 12 synergy cobalt chromium Neck +4 taper sleeve Head 45mm unipolar cobalt chromium tandem Applied: other (Dressing) Estimated Blood Loss (mL): 200 Blood products transfused: none Tourniquet time (min): 0 Procedure in detail: Hemiarthroplasty for femoral neck fracture CPT code 11751. Patient was seen in the preoperative area the site of surgery was marked and informed consent confirmed. This was the right hip. The patient was brought back to the operating room by the anesthesia team. Patient was positioned supine on the operative table. General anesthetic was ad ministered. Patient was then moved into the lateral position. The hip relay assembler positioner pads were then placed. A well-padded axillary roll was placed and the arms were appropriately positioned. The affected lower extremity was prepped and draped from the ankle to the iliac crest with ChloraPrep in the standard fashion sterile drapes were placed. Formal time-out procedure was performed confirming the patient's side and site of surgery, presence of informed consent, administration of appropriate preoperative antibiotics. Hip was approached through a standard posterior approach. Dissection was carried down through the skin and subcutaneous tissues sharply through the skin and then with the Bovie through the subcutaneous tissues. The fascia melody was exposed and opened. Fascia was opened using the Bovie and the gluteus amadou was spread with finger retraction. The Charnley retractor was placed. The inflamed bursa was resected. The piriformis was then identified. A Cobra retractor was placed under the gluteus medius to help expose the external rotators. The piriformis and short external rotators were tagged with a 2 FiberWire and divided of the trochanter. These were then retracted posteriorly to protect sciatic nerve. The femur was then flexed and internally rotated to present the femoral neck and the fracture. A corkscrew and a Wiggins were used to remove the femoral head from the acetabulum. This was measured to fit a 45 mm head. Next the femur was presented. A clean-up neck cut was made in a minimal fashion. The trial head size was trialed in the acetabulum. Attention was then turned to the femur. The canal was opened with a box cutting osteotome. This followed by the canal finder and a lateralizing Reamer. The tapered reamers were then used up to a size 12 Then broaching was sequentially done up to a size 12. Trial components were placed. The patient was stable in the position of sleep, squatting and could be put through a range of motion with 70? of internal rotation without dislocation. This was felt to be appropriate. An intraop a AP pelvis x-ray was obtained to assess component position. Final components were then selected. The final stem was a size 12th. Femoral canal was prepared . The distal small restrictor was placed approximately 1 cm distal to the end of the planned implant. The bone was meticulously cleaned with pulse lavage. Canal was then packed with epi soaked gauze. Two packages of cement were mixed and carefully pressurized into the femoral canal. The femoral component was then placed without difficulty. This was held in place until the cement hardened. The repeat trial reduction showed good range of motion and stability. The final head and neck were then carefully placed. The wound was irrigated. The capsule and muscular flap was repaired with the 2. Ethibond. Next the short external rotators were repaired to the greater trochanter through drill holes in the greater trochanter using the 2.5 drill and a Hugo [employer] Debra Natural suture Passer. These were tied with the leg in abduction. The wound was then irrigated again. The fascia melody was closed with 0 Vicryl and the subcutaneous layer was closed with 2-0 Vicryl and the skin with Stratafix Monocryl and Dermabond. An Aquacel dressing was placed. A pillow was placed for protection. The drapes removed . A sling was placed on the right upper ext remity. And the patient was taken to the recovery room in good condition. There no immediate complications from this procedure. All counts were correct. Postoperative AP pelvis x-ray was obtained in the PACU showed appropriate alignment of the cemented hip hemiarthroplasty with no evidence of fracture. Complications: none Post-operative Condition: stable Disposition: PACU Plan for aftercare: Weightbear as tolerated with the assistive devices. For the right hip fracture. Posterior hip precautions x6 weeks. Nonweightbearing right upper extremity and utilize sling for the right proximal humerus fracture we will need follow up x-rays in 1-2 weeks to follow alignment. No active or passive motion of the shoulder for 2 weeks and start Codman exercises after follow up x-ray in 1-2 weeks May use wrist and hand and elbow. Lovenox for DVT prophylaxis x4 weeks postop. Follow up in Orthopedic Clinic in 10-14 days. May follow up locally here with [facility] and Dr. Arriola were alternatively may establish care back home in [place]. But should have a repeat x-ray of her right proximal humerus in 1-2 weeks
[2025-05-11] MEDS: LACTATED RINGERS 1,000 ML 42 ML IV ×2 (10:00→12:51)
--- NOTE | 2025-05-11 11:17 | CM.DANOTE ---
B DCP Assessment Note pt is a 79yo F admitted after a GLF resulted in a right hip fx and right should fx. plan is for OR today for hip repair and likely arm sling for shoulder. pt in surgery during attempted DCP assessment PCP none listed, likely in [place] where pt is from Payer Medicare advantage (unclear which kind?) and Medicare A. EDUARDO reviewed EMR per chart/provider in morning rounds, pt lives in [place] indep at baseline. DME=cane. here visiting [facility] and [facility]. per provider, pt strong preference post op is to return home with dtr support, dtr on way from [place] to take pt home post op. post op DCP also pending post OP PT/OT recs. CM team will continue to follow closely post OP for DCP recs/pt preferences. May be a good candidate for SNF, will need to figure out pt's medicare advantage plan. barriers could include finding a contracted/in network SNF (Unless primary is pt's Medicare A). EDUARDO [place] Discharge Planning/Care Management CM Discharge Assessment Start: 05/10/25 18:28 Freq: Status: Active Protocol: Document 05/11/25 11:12 SL (Rec: 05/11/25 11:16 SL Desktop) Discharge Planning Assessment Assigned Discharge EDUARDO [place] [facility] Nurse Practitioner DPOA/Assigned osmar Beck Designee Name Contact Information [phone] Advance Directives? Yes Advance Directives No on File History Provided By Patient,Medical Record Prior Living Apartment/Condo Arrangements Household Members none Independent with ADL Yes 's Is patient alert and Yes oriented? DME Already Rented / Cane Owned Discharge Plan Home Transportation home with dtr to help fly home vs drive home. vs short Arrangement term SNF Review Status In Process Please Provide Date 05/11/25 Initial DC Assessment Was Performed Next Review Type Continued Stay Review
[2025-05-11] MEDS: CEFAZOLIN 2 GM/100 ML PREMIX 100 ML IV ×2 (11:20→18:56)
[2025-05-11] MEDS: TRANEXAMIC ACID 1,000 MG VIAL 1000 MG INJ ×2 (11:33→12:38)
--- NOTE | 2025-05-11 11:49 | SUR.OPER ---
Lateral on padded OR bed. Gel axillary roll. Arms secured on padded armboard with pillow supporting top arm. Padded hip positioner braces x4 - anterior and posterior chest and pelvis. Additional gel pad used anterior pelvis. Gel pad under bottom leg from knee to foot and secured with tape over sheet.
[2025-05-11] MEDS: BUPIVACAINE LIPOSOME 266 MG/20 ML VIAL INJ (11:55)
[2025-05-11] MEDS: BUPIVACAINE 0.25% W/ EPI 30 ML VIAL 60 ML INJ (11:55)
[2025-05-11] MEDS: EPINEPHrine 1 MG/ML IRR (12:00)
--- NOTE | 2025-05-11 14:07 | SUR.PHASEI ---
Patient resting comfortably, following simple commands when prompted. VSS.
[2025-05-11] MEDS: LACTATED RINGERS 1,000 ML 100 ML IV (14:58)
--- NOTE | 2025-05-11 14:59 | P.PN_ITS ---
Subjective Subjective Interval history: S: She is doing well after surgery. Pain much improved in the right hip. No dyspnea. Exam Vital Signs (past 8 hours): - 05/11/25 08:00 05/11/25 08:00 05/11/25 09:35 Temperature 99.3 F 98.3 F Pulse Rate 78 79 Respiratory Rate 17 16 Blood Pressure 188/59 H 111/63 Pulse Oximetry 97 94 Oxygen Delivery Method Room Air Room Air Oxygen Flow Rate 0 05/11/25 09:44 05/11/25 13:36 05/11/25 13:37 Temperature 97.9 F Pulse Rate 68 76 76 Respiratory Rate 16 11 L 13 Blood Pressure 105/58 L 92/52 L 92/51 L Pulse Oximetry 94 99 100 Oxygen Delivery Method Room Air Room Air Nasal Cannula Oxygen Flow Rate 6 6 05/11/25 13:41 05/11/25 13:44 05/11/25 13:46 Temperature Pulse Rate 71 68 70 Respiratory Rate 13 12 13 Blood Pressure 86/43 L 96/50 L 94/53 L Pulse Oximetry 100 100 100 Oxygen Delivery Method Nasal Cannula Nasal Cannula Nasal Cannula Oxygen Flow Rate 7 7 6 05/11/25 13:51 05/11/25 14:02 05/11/25 14:12 Temperature Pulse Rate 69 71 14 L Respiratory Rate 13 13 99 H Blood Pressure 91/51 L 110/58 L 104/55 L Pulse Oximetry 100 98 4 L Oxygen Delivery Method Nasal Cannula Nasal Cannula Nasal Cannula Oxygen Flow Rate 4 4 05/11/25 14:16 05/11/25 14:19 05/11/25 14:29 Temperature Pulse Rate 17 L 70 70 Respiratory Rate 98 H 12 12 Blood Pressure 104/62 110/58 L 107/61 Pulse Oximetry 4 L 99 97 Oxygen Delivery Method Nasal Cannula Nasal Cannula Nasal Cannula Oxygen Flow Rate 4 3 Oxygen Delivery Method Nasal Cannula Oxygen Flow Rate 3 Narrative Exam Narrative: NAD, alert and oriented. Fluent speech. NRB. Lungs are clear, normal rate and effort. Heart is regular, no murmur gallop or rub. Abdomen is soft, non distended. Extremities are free of edema. Right shoulder bruising. Objective Labs 05/10/25 13:15 05/10/25 13:15 Labs: Laboratory Results - last 24 hr 05/11/25 05:29 Blood Type O Positive Antibody Screen Negative [facility] Social History household members: none lives independently: Yes Smoking Status: Never smoker alcohol intake: current Assessment & Plan Assessment & Plan narrative: 1. Right femoral neck fracture, present on admission and active. S/P FIDE 05/11, no complications. 2. Right humerus fracture, present on admission and active. Sling. 3. Ground level fall prior to admission, stable. 4. Multiple myeloma, stable. 5. Hypothyroidism, stable. Plan: -Pain medications. -ASA BID -PT in AM -Shoulder sling. DISHA: 05/13. DNR, confirmed time of admission. Anticipate 2 midnights in the hospital, supports inpatient status. Proxy decision makers are daughters, in [place]. Time-Based Coding :: [TOTAL MINUTES] spent with patient and on the chart (including review of chart, obtaining history, exam, reviewing outside data, placing orders, documenting exam and treatment plan, and counseling patient) on [DATE]. Quality VTE Deep Vein Thrombosis/Pulmonary Embolism Present on Admission: No
[2025-05-11] MEDS: ACETAMINOPHEN 325 MG TABLET 650 MG PO (15:31)
--- NOTE | 2025-05-11 16:09 | PC.NURSE ---
Pt returned from PACU at 1445. A&Ox4, VSS on 2L NC. No c/o pain. Aquacel dressing to R hip c/d/i, sling in place to RUE, lungs cta, bowel sounds hypoactive, CMS+. Patient reoriented to room and call light and left to visit with friend at bedside. Bed in low position, bed alarm activated, call light within reach, SCDs on.
[2025-05-11] MEDS: MORPHINE ER 15 MG TABLET PO (20:45)
[2025-05-11] MEDS: DOCUSATE 100 MG CAPSULE PO (20:45)
[2025-05-12] VITALS (10 sets, daily range): BP systolic 95–127; BP diastolic 43–69; PULSE 75–87; RESP 16–20; TEMP 36.6–37.7; O2SAT 92–100
[2025-05-12] MEDS: LACTATED RINGERS 1,000 ML 100 ML IV ×3 (00:37→23:27)
[2025-05-12] MEDS: HYDROCODONE/ACET 5/325 TABLET 1 TAB PO ×2 (02:14→16:51)
[2025-05-12] MEDS: CEFAZOLIN 2 GM/100 ML PREMIX 100 ML IV (03:29)
[2025-05-12 05:22] LABS: Add Manual Diff / Slide Review NO; Lymphocytes Absolute Auto 300 /uL (1100-4500); Mean Corpuscular HGB Conc 34.8 % (30-36); Mean Corpuscular Hemoglobin 34.2 PG (26-34); Mean Corpuscular Volume 98.3 fL (80-100); Platelet Count 76 X10^3/uL (150-400)
[2025-05-12 05:26] LABS: Hematocrit 18.2 % (36-46); Hemoglobin 6.3 g/dL (12.0-16.0)
[2025-05-12 05:30] LABS: Blood Urea Nitrogen 16 mg/dL (7-17); Calcium 7.4 mg/dL (8.4-10.2); Carbon Dioxide 25 mmol/L (22-32); Chloride 105 mmol/L (98-107); Estimated Glomerular Filt Rate > 60 mL/min (>60); Glucose 116 mg/dL (70-99); HEMOLYSIS < 15 (0-50); Potassium 4.2 mmol/L (3.4-5.1); Sodium 133 mmol/L (137-145)
[2025-05-12] MEDS: LEVOTHYROXINE 75 MCG TABLET PO (06:12)
--- NOTE | 2025-05-12 06:19 | PC.NURSE ---
H/H 6.3 18.3. No active bleeding noted. R hip dressing CDI. Notified Dr Vang and ordered 1 unit. Printed Blood transfusion consent form and explained procedure to the patient and why she would be receiving the 1 unit of blood. Pt wants to wait and talk with the doctor this morning before receiving the transfusion. I have an oncologist in [place] and I am concerned because of the Revlimid I am taking and concerned about dosage and blood levels. Dr Vang notified and okay to wait for day doctor to speak with patient.
--- NOTE | 2025-05-12 07:31 | P.PN_ITS ---
Subjective Subjective Interval history: S: She was having a lot of pain in the hip in his also anxious and tearful. Her hemoglobin dropped to 6 and she was reluctant to accept a blood transfusion because of her chemotherapy and multiple myeloma. We did talk about this at length and she was willing to do this at this point. Exam Vital Signs (past 8 hours): - 05/12/25 00:03 05/12/25 04:31 05/12/25 06:00 Temperature 98.2 F 97.9 F Pulse Rate 85 75 Respiratory Rate 18 18 Blood Pressure 105/69 99/51 L 108/43 L Pulse Oximetry 100 99 100 Oxygen Flow Rate 2 2 2 Oxygen Delivery Method Room Air Oxygen Flow Rate 2 Narrative Exam Narrative: NAD, alert and oriented. Fluent speech. Anxious and tearful. Lungs are clear, normal rate and effort. Heart is regular, no murmur gallop or rub. Abdomen is soft, non distended. Extremities are free of edema. Objective Labs 05/12/25 04:55 05/12/25 04:55 Labs: Laboratory Results - last 24 hr 05/11/25 05/12/25 05:29 04:55 WBC 3.8 L RBC 1.86 L Hgb 6.3 L* Hct 18.2 L* MCV 98.3 MCH 34.2 H MCHC 34.8 RDW 15.8 H Plt Count 76 L Neut % (Auto) 80.9 H Lymph % (Auto) 7.6 L [place] % (Auto) 11.0 Eos % (Auto) 0.3 L Baso % (Auto) 0.2 Neut # (Auto) 3100 Lymph # (Auto) 300 L [place] # (Auto) 400 Eos # (Auto) 0 Baso # (Auto) 0 Sodium 133 L Potassium 4.2 Chloride 105 Carbon Dioxide 25 BUN 16 Creatinine 0.78 Estimated GFR > 60 BUN/Creatinine Ratio 20.5 Glucose 116 H Calcium 7.4 L Blood Type O Positive Antibody Screen Negative Crossmatch See Detail [facility] Social History household members: none lives independently: Yes Smoking Status: Never smoker alcohol intake: current Assessment & Plan Assessment & Plan narrative: 1. Right femoral neck fracture, present on admission and active. S/P FIDE 05/11, no complications. 2. Right humerus fracture, present on admission and active. Sling. 3. Blood loss anemia from fracture, new and active. 3. Ground level fall prior to admission, stable. 4. Multiple myeloma, stable. 5. Hypothyroidism, stable. Plan: -Pain medications. -ASA BID -1 UNIT PRBC -Shoulder sling. -anticipate discharge to [facility] in 1-2 days for rehabilitation. -physical therapy assessment ordered. DISHA: 05/13. DNR, confirmed time of admission. Anticipate 2 midnights in the hospital, supports inpatient status. Time-Based Coding :: [TOTAL MINUTES] spent with patient and on the chart (including review of chart, obtaining history, exam, reviewing outside data, placing orders, documenting exam and treatment plan, and counseling patient) on [DATE]. Quality VTE Deep Vein Thrombosis/Pulmonary Embolism Present on Admission: No
--- NOTE | 2025-05-12 09:33 | PM.PNPO.1 ---
Subjective Subjective Date Patient Seen: 05/12/25 Time Patient Seen: 09:33 Interval history: Postop day 1 cemented hemiarthroplasty for right femoral neck fracture. Nonoperative treatment right proximal humerus fracture and sling Patient is seen lying in bed eating a banana. States not feeling great receiving a unit of blood which she states she was ?not happy about?. Pain otherwise controlled. I showed her radiographs of her new hip. And discussed that I would recommend repeat x-rays of her proximal humerus fracture in a week to 2 weeks to check position. Discussed the 1st 2 weeks are in a sling hand and wrist and elbow motion only. After 2 weeks start Codman exercises for the shoulder and I discussed what these in detail. End-stage more range of motion activity starts about 6 or 7 weeks after the proximal humerus fracture. Discussed that most patients feel better sitting up with a shoulder fracture or may need to sleep in a recliner chair. Now that her hip is fixed this should be more reasonable and nursing can get her up to a chair sit her up a little further in bed. She was weightbear as tolerated with the assistive devices on the right lower extremity. Exam Vital Signs (past 8 hours): - 05/12/25 04:31 05/12/25 06:00 05/12/25 08:00 Temperature 97.9 F 98.8 F Pulse Rate 75 83 Respiratory Rate 18 16 Blood Pressure 99/51 L 108/43 L 102/55 L Pulse Oximetry 99 100 Oxygen Flow Rate 2 2 05/12/25 08:41 Temperature 98.8 F Pulse Rate 83 Respiratory Rate 16 Blood Pressure 102/55 L Pulse Oximetry 100 Oxygen Flow Rate 2 Oxygen Delivery Method Room Air Oxygen Flow Rate 2 Narrative Exam Narrative: Vital signs are stable. Blood pressure has been on the low side but stable. General exam is alert and oriented female no acute distress lying in bed. Receiving a unit of blood. Right upper extremity examination sling in place. Bruising over the proximal humerus with mild swelling. It demonstrates range of motion of the elbow and wrist and hand on the right side. Demonstrates wrist flexion and extension finger flexion and extension. Palpable radial pulse. Right lower extremity Aquacel dressing clean dry and intact. Thigh and calf are soft. 5/5 dorsiflexion plantar flexion. Palpable dorsalis pedis pulse. SCDs in place. Objective Labs 05/12/25 04:55 05/12/25 04:55 Labs: Laboratory Results - last 24 hr 05/11/25 05/12/25 05:29 04:55 WBC 3.8 L RBC 1.86 L Hgb 6.3 L* Hct 18.2 L* MCV 98.3 MCH 34.2 H MCHC 34.8 RDW 15.8 H Plt Count 76 L Neut % (Auto) 80.9 H Lymph % (Auto) 7.6 L [place] % (Auto) 11.0 Eos % (Auto) 0.3 L Baso % (Auto) 0.2 Neut # (Auto) 3100 Lymph # (Auto) 300 L [place] # (Auto) 400 Eos # (Auto) 0 Baso # (Auto) 0 Sodium 133 L Potassium 4.2 Chloride 105 Carbon Dioxide 25 BUN 16 Creatinine 0.78 Estimated GFR > 60 BUN/Creatinine Ratio 20.5 Glucose 116 H Calcium 7.4 L Blood Type O Positive Antibody Screen Negative [facility] Social History household members: none lives independently: Yes Smoking Status: Never smoker alcohol intake: current Assessment & Plan Post-op Postoperative Procedures: Procedures Operation Date: 05/11/25 10:15 Actual Procedure Side Surgeon p Hip Hemiarthroplasty Ted Right Kasandra Arriola MD Postoperative day: 1 Postoperative status: anemia Postoperative status narrative: Postop day 1 right cemented hemiarthroplasty for right hip fracture. And nonoperative treatment for right proximal humerus fracture and sling. Patient has acute blood loss anemia. however looking at her lab draw from this morning white blood cells hemoglobin RBCs and platelets were all low, I would opine that it looks like may in part be some dilution in the sample. Vital signs have been stable. Although I do expect some blood loss anemia with surgery blood loss during surgery was not excessive. And she did receive TXA during surgery. She does not have any signs or symptoms of active bleeding. However, She did start out with chronic anemia secondary to her multiple myeloma. She was getting 1 unit of PRBCs this morning per the hospitalist Medicine team. Prophylactic anticoagulation with Lovenox held this morning. Recommend once hemoglobin stabilized to start chemical DVT prophylaxis with Lovenox 40 mg subcutaneous daily for 4 weeks hip post surgery. At this time utilizing mechanical prophylaxis with bilateral SCDs Postoperative plan: routine post-op care Postoperative plan narrative: 1. Status post right cemented hemiarthroplasty. Weightbear as tolerated with the assistive devices. Posterior hip precautions x6 weeks. Mobilize with PT OT. 2. Right proximal humerus fracture. Nonoperative treatment in sling. Sling at all times except for hygiene for 2 weeks. After 2 weeks can start Codman exercises. Should get a repeat radiograph in 1-2 weeks to check alignment. May use wrist and hand. The patient's will often finds sitting up in bed or in a recliner for sleep more comfortable for the proximal humerus fracture. Quality VTE Deep Vein Thrombosis/Pulmonary Embolism Present on Admission: No
--- NOTE | 2025-05-12 09:42 | PT-IP ANOTE ---
PT consult received. Pt's Hgb is 6.3 this morning. Will hold PT today.
--- NOTE | 2025-05-12 10:48 | PC.NURSE ---
Patients 1u of prbcs started at 0905, vss and patient is tolerating this well. She was anxious this morning, given po ativan and now patient is soundly sleeping. She will get the rest of her medication when she wakes up. Blood is infusing at 125cc/hr. into see patient. She has an aquacel dressing to her r.hip that is cdi. PPX2 and patient also has a sling in place to r.arm. Daughter just called for an update, gave her cyber intel planner her number and they will call her.
[2025-05-12] MEDS: DOCUSATE 100 MG CAPSULE PO ×2 (11:26→21:49)
[2025-05-12] MEDS: MORPHINE ER 15 MG TABLET PO ×2 (11:26→21:49)
--- NOTE | 2025-05-12 12:31 | CM.DPC ---
DCP SNF vs Home Cont: Per Ortho Surgeon, pt tolerated procedure well and to have sling for shoulder for 2 weeks and start exercises around 2 week radha and to be WBAT and to work with PT/OT. Pt with lower H&H but no signs of active bleed and potential for dilutional but getting one unit of blood this AM and then cleared to work with therapies. SW discussed with MD and PT in rounds this AM the importance of determining pt's d/c needs as pt's preference is return to [place] with Dtr if possible but might need SNF and will need to determine if SNF possible SNF auth once Admission Counselors confirm pt's [place] insurance. Per PT this AM, holding on eval since pt getting transfusion this AM. Per RN, pt was anxious this morning and given Ativan and now sleeping soundly and groggy and Dtr Ebony [phone] called requesting call from DCP to discuss options. Called Dtr and left msg that will know more of pt's needs after PT/OT eval and recommendations. Plan; SW to follow closely for PT/OT eval to determine home vs SNF and if pt safe for return to [place] at d/c. EDUARDO Maddox
[2025-05-12 13:55] LABS: Hematocrit 22.7 % (36-46); Hemoglobin 7.9 g/dL (12.0-16.0)
[2025-05-12] MEDS: HYDROMORPHONE 0.5 MG INJ IV (23:26)
[2025-05-13 05:00] VITALS: BP 122/69; PULSE 83; RESP 17; TEMP 36.8; O2SAT 100
[2025-05-13 05:02] LABS: Hematocrit 21.3 % (36-46); Hemoglobin 7.6 g/dL (12.0-16.0); Mean Corpuscular HGB Conc 35.5 % (30-36); Mean Corpuscular Hemoglobin 33.7 PG (26-34); Mean Corpuscular Volume 94.7 fL (80-100); Platelet Count 67 X10^3/uL (150-400)
[2025-05-13 05:13] LABS: Blood Urea Nitrogen 14 mg/dL (7-17); Calcium 7.4 mg/dL (8.4-10.2); Carbon Dioxide 26 mmol/L (22-32); Chloride 101 mmol/L (98-107); Estimated Glomerular Filt Rate > 60 mL/min (>60); Glucose 96 mg/dL (70-99); HEMOLYSIS < 15 (0-50); Potassium 3.6 mmol/L (3.4-5.1); Sodium 131 mmol/L (137-145)
[2025-05-13] MEDS: LEVOTHYROXINE 75 MCG TABLET PO (05:23)
[2025-05-13] MEDS: HYDROMORPHONE 0.5 MG INJ IV (07:06)
--- NOTE | 2025-05-13 07:49 | PM.PN.1 ---
Subjective Subjective Interval history: Summary: She was admitted with a ground level fall with a right proximal humerus fracture which is being treated medically, and a right hip fracture. She was status post a right arthroplasty. She had blood loss anemia requiring 1 unit of blood on May 12. She remains somewhat anemic today. She is having some delays in her progression. She is visiting from the [place] area. She was 2 daughters in [place]. Chronic MM being treated. S: She was having some pain this morning, feels a bit better today. No dyspnea or leg swelling. Exam Vital Signs (past 8 hours): - 05/13/25 05:00 Temperature 98.3 F Pulse Rate 83 Respiratory Rate 17 Blood Pressure 122/69 Pulse Oximetry 100 Oxygen Flow Rate 2 Oxygen Delivery Method Room Air Oxygen Flow Rate 2 Narrative Exam Narrative: NAD, alert and oriented. Fluent speech. Lungs are clear, normal rate and effort. Heart is regular, no murmur gallop or rub. Abdomen is soft, non distended. Extremities are free of edema. Right shoulder swellign and bruising. Objective Imaging Multiple studies: : Radiologist's impression: Shoulder x-ray: Comminuted and displaced fracture of the proximal humeral head/neck. Hip x-ray: Displaced right femoral neck fracture. Labs 05/13/25 04:50 05/13/25 04:50 Labs: Laboratory Results - last 24 hr 05/11/25 05/12/25 05/13/25 05:29 13:50 04:50 WBC 4.7 RBC 2.25 L Hgb 7.9 L 7.6 L Hct 22.7 L 21.3 L MCV 94.7 D MCH 33.7 MCHC 35.5 RDW 17.7 H Plt Count 67 L Sodium 131 L Potassium 3.6 Chloride 101 Carbon Dioxide 26 BUN 14 Creatinine 0.68 Estimated GFR > 60 BUN/Creatinine Ratio 20.6 Glucose 96 Calcium 7.4 L Blood Type O Positive Antibody Screen Negative Crossmatch See Detail [facility] Social History household members: none lives independently: Yes Smoking Status: Never smoker alcohol intake: current Assessment & Plan Assessment & Plan narrative: 1. Right femoral neck fracture, present on admission and active. S/P FIDE 05/11, no complications. 2. Right humerus fracture, present on admission and active. Sling. 3. Blood loss anemia from fracture, new and active. 1 PRBC 05/12. 3. Ground level fall prior to admission, stable. 4. Multiple myeloma, stable. 5. Hypothyroidism, stable. Plan: -Continue pain medications. -ASA BID -1 UNIT PRBC -Shoulder sling. -anticipate discharge to longterm facility in 1-2 days for rehabilitation. -physical therapy assessment ordered. DISHA: 05/14, [facility]. Time-Based Coding :: [TOTAL MINUTES] spent with patient and on the chart (including review of chart, obtaining history, exam, reviewing outside data, placing orders, documenting exam and treatment plan, and counseling patient) on [DATE]. Quality VTE Deep Vein Thrombosis/Pulmonary Embolism Present on Admission: No
[2025-05-13 08:07] VITALS: BP 122/65; PULSE 80; RESP 19; TEMP 37.1; O2SAT 99
[2025-05-13] MEDS: HYDROCODONE/ACET 5/325 TABLET 1 TAB PO ×3 (09:37→19:38)
[2025-05-13] MEDS: DOCUSATE 100 MG CAPSULE PO (09:37)
[2025-05-13] MEDS: MORPHINE ER 15 MG TABLET PO ×2 (09:37→21:20)
--- NOTE | 2025-05-13 10:47 | PC.NURSE ---
Addendum entered by Cris Anderson R.N. 05/13/25 16:49: Patient has had her maldonado catheter in for two days. Staff encouraged patient to let us take out but she was hesitant and stated I cant even walk. Gave her alternatives like bed reagan and pure wick but patient refused. Will approach patient again about this and see what she sais later. Original Note: Patient seems to be feeling a bit better today, She has already let us reposition her three times this morning. We talked with her this morning and explained the benefits of turning her. Her bottom is clear and blanchable. Maldonado patent and putting out yellow urine. She is agreeable to work with physical therapy today. Given po meds and 1 vicodin to help with discomfort to back and r.hip. Dressing intact, ppx2. Will ask if we can heplock patient as she is drinking fluids.
--- NOTE | 2025-05-13 10:55 | OT.IP.EVAL ---
Current Diagnoses Multiple myeloma not having achieved remission (05/10/25) Age-related osteoporosis with current pathological fracture, right femur, initial encounter for fracture (05/10/25) Unspecified displaced fracture of surgical neck of right humerus, initial encounter for closed fracture (05/10/25) Fracture of unspecified part of neck of right femur, initial encounter for closed fracture (05/10/25) Surgery Performed Operation Date: 05/11/25 10:15 Actual Procedures p Hip Hemiarthroplasty Ted(Right) - Kasandra Arriola MD Occupational Therapy Inpatient Evaluation/Re-Eval M1 PT/OT-IP Prior Functional Status Start: 05/13/25 10:58 Freq: NEEDED Status: Active Protocol: Document 05/13/25 10:25 [facility] (Rec: 05/13/25 11:17 [facility] Desktop) Medical Review Prior Functional Status Communication I Mobility and Gait Pt states had a SPC but mainly just for security and did not really use it. Activities of Daily Pt was completely independent with all ADL and IADL Living and IADL's needs. Social History Household Members none Living Arrangements Apartment/Condo Number of Floors ( One Floor Floors) Number of Stairs To 8 steps with bilateral rails. Enter/Railing? Home Environment High Toilet,Walk in Shower,Tub/Shower Home Equipment Straight Cane,Drug Safety Coordinator Additional Social Pt has an adjustable bed. History Comment Pt was visiting here and staying in a hotel. Information based on her house in [place]. M2 OT-IP Current Condition Start: 05/13/25 10:58 Freq: Status: Active Protocol: Document 05/13/25 10:25 [facility] (Rec: 05/13/25 11:17 [facility] Desktop) Occupational Therapy Current Condition Current Condition Evaluation Date 05/13/25 Treatment Diagnosis S/P R FIDE and Right humerus fracture Diagnosis Onset Date 05/10/25 Post Operative Precautions Posterior Hip No Hip Flexion > 90 degrees,No Hip Internal Rotation,No Precautions Hip Adduction Weight Bearing Status Weight Bearing Non-Weight Bearing Status Allowed Weight RUE NWB Bearing Amount ( enter % or #) (%) M3 OT- IP Subjective and Pain Start: 05/13/25 10:58 Freq: Status: Active Protocol: Document 05/13/25 10:25 [facility] (Rec: 05/13/25 11:17 [facility] Desktop) OT- Subjective Occupational Therapy Visit Type Type Initial Evaluation Visit Start Time 10:25 Visit Stop Time 10:55 Occupational Therapy Visit Comments Patient Comments Pt agreed to try to get up. Patient/Caregiver TO go home. Goals OT Pain Assessment Pain When Pain Assessed During Mobility Pain Present Pain Present Pain Reported Location right hip Intensity 7 Scale Used Numeric (0 - 10) M4 OT- IP ADL's Start: 05/13/25 10:58 Freq: Status: Active Protocol: Document 05/13/25 10:25 [facility] (Rec: 05/13/25 11:17 [facility] Desktop) OT [id number] Comments OT Self-Feeding Not performed, will need assist with set-up. Comments OT ADL-Grooming Comments OT Grooming Comments Will need assist with set-up. OT ADL-Oral Care Comments Oral Care Comments Not performed. OT ADL-Dressing General Eval Upper Body Dressing Total Assistance Ability Lower Body Dressing Maximum Assistance Ability Comments OT Dressing Comments Assist for sling management needs and for socks. OT ADL-Toileting General Evaluation Toileting Ability Total Assistance Comments OT Toileting L[place] in place. Comments OT ADL-Bathing Comments OT Bathing Comments Sponge bath more appropriate at this time. M5 OT- IP IADL's Start: 05/13/25 10:58 Freq: Status: Active Protocol: Document 05/13/25 10:25 [facility] (Rec: 05/13/25 11:17 [facility] Desktop) OT-Instrumental Activities of Daily Living Home Safety Awareness Home Safety Comments Pt realizes that it would be best to go to skilled rehab. Medication Management Medication Prior pt able to do. Management Comments Money Management Money Management Prior pt was doing on her own. Comments Meal Preparation Meal Preparation Pt will need assist. Comments Enrollment Clerk Enrollment Clerk Pt will need assist. Comments M6 OT- IP Functional Cognition Start: 05/13/25 10:58 Freq: Status: Active Protocol: Document 05/13/25 10:25 [facility] (Rec: 05/13/25 11:17 [facility] Desktop) Cognitive Factors Limiting Selfcare Function Cognitive Ability Level of Alertness Alert Patient Orientation Name,Age,Birthday,Month,Date,Year,Day of Week,Place, Situation Attention Span Capable of Focused Attention,Capable of Sustained Ability Attention Ability to Follow Able to Follow One Step Commands Commands Cognitive Comments Cognitive Assessment Pt able to follow commands but needing vc to follow her Comments hip precautions as pt just learning them today. OT- Vision and Hearing OT- Hearing Assessment OT- Hearing WFL Assessment OT- Vision Assessment Visual Acuity WFL Visual Attentiveness WFL Occular Pursuits WFL M7 OT- IP Mobility and Balance Start: 05/13/25 10:58 Freq: Status: Active Protocol: Document 05/13/25 10:25 [facility] (Rec: 05/13/25 11:17 [facility] Desktop) OT- Bed Mobility Assessment Supine to Sit Supine to Sit Assist Maximum Assistance,2 Person Assistance,Bedrails Sit to Supine Sit to Supine Assist Maximum Assistance,2 Person Assistance,Bedrails Scooting Scooting to Edge of Maximum Assistance,2 Person Assistance Bed OT-Transfer Assessment Sit to and From Stand Sit to and from Maximum Assistance,2 Person Assistance Stand Comments Mobility Comments BP supine 100/59, sitting 100/59, standing 103/68 and feeling dizzy and wanting to sit down- supine BP 92/65. At this time if having to more best to use a jimena lift. OT- Balance Assessment Sitting Balance and Reactions Static Sitting Good Balance Ability Dynamic Sitting Fair Balance Ability Standing Balance and Reactions Static Standing Poor Balance Ability Dynamic Standing Poor Balance Ability M8 OT- IP Objective Assessments Start: 05/13/25 10:58 Freq: Status: Active Protocol: Document 05/13/25 10:25 [facility] (Rec: 05/13/25 11:17 [facility] Desktop) OT Gross Range of Motion Upper Extremity Range of Motion Assessment Right Impaired OT Strength Upper Extremity Strength Assessment Bilaterally Impaired Comments Strength Comments right NT due to humerus fx and NWB, LUE 4-/5 to 4/5 from proximal to distal. M9 OT- IP Assessment and Plan Start: 05/13/25 10:58 Freq: Status: Active Protocol: Document 05/13/25 10:25 [facility] (Rec: 05/13/25 11:17 [facility] Desktop) OT Summary Assessment and Plan Potential Rehabilitation Good Potential Analytic Complexity Moderate at Evaluation Summary OT Impairments Pain,Strength,Balance,Functional Mobility,Self-Feeding, Grooming,Dressing,Toileting,Bathing,Toilet Transfers, Shower Transfers,Activity Tolerance Progress Towards Slow Progress due to Pain,Slow Progress due to Medical Goals Issues,Slow Progress due to Activity Tolerance Assessment Summary Pt MOD complexity and main barrier are steps, pain, getting woozy while getting up and having drop in BP. Pt also having NWB for RUE due to humerus fx. Pt best to go to skilled rehab at this time. Pt needing MAX AX 2 for bed mobility and to come to stand to the ted- walker at this time. Goals Self-Feeding Goal Standby Assistance Grooming Goal Standby Assistance Dressing Goal Minimal Assistance Toileting Goal Standby Assistance Bathing Goal Minimal Assistance Toilet Transfer Goal Standby Assistance Shower Transfer Goal Contact Guard Assistance Days to Meet Goals 25 Frequency of Treatment Other frequency 5x/week Treatment Plan OT Treatment Plan ADL Training,Functional Mobility,Patient/Family Education,Discharge Planning Discharge Recommendations OT Discharge SNF Rehab Recommendations Transportation Needs Wheelchair/Cabulance at Discharge
--- NOTE | 2025-05-13 11:15 | PM.PNPO.1 ---
Subjective Subjective Date Patient Seen: 05/13/25 Time Patient Seen: 11:16 Interval history: Patient resting in bed. No acute distress. Feeling little better today than yesterday. States shoulder feeling a little bit better today. Right upper extremity in sling. Aquacel dressing clean and dry on the right hip. Stood up briefly with physical therapy today per report felt dizzy then laid back down again. She was now is agreeable to long-term discharge for a few weeks in [place] before traveling back to [place] Exam Vital Signs (past 8 hours): - 05/13/25 05:00 05/13/25 08:07 Temperature 98.3 F 98.7 F Pulse Rate 83 80 Respiratory Rate 17 19 Blood Pressure 122/69 122/65 Pulse Oximetry 100 99 Oxygen Flow Rate 2 2 Oxygen Delivery Method Room Air Oxygen Flow Rate 2 Narrative Exam Narrative: Alert and oriented no acute distress lying in bed. Right upper extremity in sling. Aquacel clean and dry on the right hip. Breathing unlabored on room air. Pulse is regular rate. Right upper extremity in sling stable ecchymosis. Upper and arm and forearm compartments soft. Wrist flexion extension intact. Sensation grossly intact to light touch. Right lower extremity demonstrates Aquacel dressing clean dry and intact. Thigh and calf soft. 5/5 dorsiflexion plantar flexion. Stable to initiate knee flexion and extension limited range of motion secondary to pain and effort. Objective Labs 05/13/25 04:50 05/13/25 04:50 Labs: Laboratory Results - last 24 hr 05/11/25 05/12/25 05/13/25 05:29 13:50 04:50 WBC 4.7 RBC 2.25 L Hgb 7.9 L 7.6 L Hct 22.7 L 21.3 L MCV 94.7 D MCH 33.7 MCHC 35.5 RDW 17.7 H Plt Count 67 L Sodium 131 L Potassium 3.6 Chloride 101 Carbon Dioxide 26 BUN 14 Creatinine 0.68 Estimated GFR > 60 BUN/Creatinine Ratio 20.6 Glucose 96 Calcium 7.4 L Crossmatch See Detail PFSH Social History household members: none lives independently: Yes Smoking Status: Never smoker alcohol intake: current Assessment & Plan Post-op Assessment and plan (1) Fx humeral neck: Assessment and Plan narrative: Alignment reasonable for nonoperative treatment in a sling. Follow up x-ray in 1-2 weeks to check alignment. Start Codman exercises after 2 weeks. (2) Closed hip fracture: Assessment and Plan narrative: Right femoral neck fracture status post cemented hemiarthroplasty postoperative day 2. Weightbear as tolerated. Posterior precautions, pillow between legs while in bed x6 weeks. (3) Osteoporotic hip fracture: Assessment and Plan narrative: Same as above (4) Multiple myeloma: Assessment and Plan narrative: Treatment per primary has oncologist in [place]. Impact on current acute hospitalization his chronic anemia and VTE risk. Postoperative Procedures: Procedures Operation Date: 05/11/25 10:15 Actual Procedure Side Surgeon p Hip Hemiarthroplasty Ted Right Kasandra Arriola MD Postoperative day: 2 Postoperative status: anemia Postoperative status narrative: Acute blood loss anemia on chronic anemia. Received 1 unit of PRBCs yesterday. Hemoglobin stable today. Platelets relatively low as well. No signs of ongoing bleeding. Vital signs are stable. Postoperative plan: routine post-op care Postoperative plan narrative: 1. Weightbear as tolerated right lower extremity with the assistive devices. Posterior hip precautions x6 weeks. The patient's incision is closed with the Dermabond and skin glue. May shower with the Aquacel 2. Right proximal humerus fracture nonoperative treatment and sling. We will need a repeat x-ray in 1-2 weeks to check alignment. 3. DVT prophylaxis recommend chemical prophylaxis with subcutaneous Lovenox x4 weeks for immobility recent hip surgery and trauma and history of multiple myeloma. Discussed patient with internal medicine hospitalist Dr. Boston today. Discharge per primary when stable. I would be happy to see her in my orthopedic clinic at [facility] orthopedics in [facility] [phone]--- 1-2 weeks out from injury for repeat radiographs. Time Spent With Patient Time with patient: less than 15 minutes Quality VTE Deep Vein Thrombosis/Pulmonary Embolism Present on Admission: No
--- NOTE | 2025-05-13 11:36 | PT.IIE ---
Current Diagnoses Multiple myeloma not having achieved remission (05/10/25) Age-related osteoporosis with current pathological fracture, right femur, initial encounter for fracture (05/10/25) Unspecified displaced fracture of surgical neck of right humerus, initial encounter for closed fracture (05/10/25) Fracture of unspecified part of neck of right femur, initial encounter for closed fracture (05/10/25) Surgery Performed Operation Date: 05/11/25 10:15 Actual Procedures p Hip Hemiarthroplasty Ted(Right) - Kasandra Arriola MD Physical Therapy Inpatient Evaluation/Re-Eval M1 PT/OT-IP Prior Functional Status Start: 05/13/25 09:22 Freq: NEEDED Status: Active Protocol: Document 05/13/25 10:35 AMB (Rec: 05/13/25 11:35 AMB [id number]) Medical Review Prior Functional Status Medical History Yes Reviewed Communication WFL Mobility and Gait Susana reports she uses a SPC in the community at baseline but not in her apartment Social History Household Members none Living Arrangements Apartment/Condo Number of Floors ( One Floor Floors) Number of Stairs To 8 LIZET with bilateral railings that are wideset Enter/Railing? Home Equipment Straight Cane Additional Social patient lives in [place], has 2 adult daughters that live History Comment close to her [place] residence M1 PT/OT-IP Prior Functional Status Start: 05/13/25 10:58 Freq: NEEDED Status: Active Protocol: Document 05/13/25 10:25 [facility] (Rec: 05/13/25 11:17 [facility] Desktop) Medical Review Prior Functional Status Communication I Mobility and Gait Pt states had a SPC but mainly just for security and did not really use it. Activities of Daily Pt was completely independent with all ADL and IADL Living and IADL's needs. Social History Household Members none Living Arrangements Apartment/Condo Number of Floors ( One Floor Floors) Number of Stairs To 8 steps with bilateral rails. Enter/Railing? Home Environment High Toilet,Walk in Shower,Tub/Shower Home Equipment Straight Cane,Vp Respiratory Additional Social Pt has an adjustable bed. History Comment Pt was visiting here and staying in a hotel, by from [place]. Information based on her house in [place]. M2 PT-IP Current Condition Start: 05/13/25 09:22 Freq: NEEDED Status: Active Protocol: Document 05/13/25 10:35 AMB (Rec: 05/13/25 11:35 AMB [id number]) Physical Therapy Current Condition Current Condition Evaluation Date 05/13/25 Treatment Diagnosis R proximal humerus fx, R femoral neck fx with hemiarthorplasty Onset Date 05/11/25 M3 PT-IP Subjective Start: 05/13/25 09:22 Freq: NEEDED Status: Active Protocol: Document 05/13/25 10:35 AMB (Rec: 05/13/25 11:35 AMB [id number]) Subjective Physical Therapy Visit Type Type Initial Evaluation Visit Start Time 10:25 Visit Stop Time 10:55 Physical Therapy Visit Comments Patient Comments Pt reports L sided groin pain with L LE movement Therapy Pain Assessment Location right hip Intensity 6 M4 PT-IP Mobility and Gait Start: 05/13/25 09:22 Freq: NEEDED Status: Active Protocol: Document 05/13/25 10:35 AMB (Rec: 05/13/25 11:35 AMB [id number]) PT-Bed Mobility Assessment Rolling Type of Rolling Log Rolling,Roll to Left Level of Assist Maximal Assistance,2 Person Assistance Supine to Sit Supine to Sit Maximum Assistance,2 Person Assistance,Head of Bed Elevated Sit to Supine Sit to Supine Maximum Assistance,2 Person Assistance PT-Transfer Assessment Sit to and From Stand Sit to and from Maximum Assistance,2 Person Assistance Stand Equipment Transfer Assistive Ted Walker Device Transfers Transfer Destination Bed Comments Mobility Comments Susana is non-weightbearing through her R shoulder (in a sling) and WBAT through her right hip with posterior hip precautions. She is having muscle spasms in her left leg that limit her bed mobility with the L LE as well. She required MAXAx2 for all bed mobility and when moving sit to stand needed extensive education in precautions. She had a hard posterior lean when first standing up requiring 2 person assist, but with time (2 min) was able to stand with MinAx1. Her blood pressure did decrease and she reported dizziness so we did not attempt further transfers. PT-Balance Assessment Sitting Balance and Reactions Static Sitting Fair Balance Ability M5 PT-IP Objective Assessments Start: 05/13/25 09:22 Freq: NEEDED Status: Active Protocol: Document 05/13/25 10:35 AMB (Rec: 05/13/25 11:35 AMB [id number]) Orientation Orientation/Cognition Level of Alertness Alert Strength Lower Extremity Strength Assessment Bilaterally Impaired Hip 2 Knee 2 Ankle 4 M6 PT-IP Treatment Start: 05/13/25 09:22 Freq: NEEDED Status: Active Protocol: Document 05/13/25 10:35 AMB (Rec: 05/13/25 11:35 AMB [id number]) Physical Therapy Treatment Exercises Exercises Ankle Pumps Education Education Provided Precautions,Weight Bearing Status,Post-Op Packet,Safety M7 PT-IP Assessment and Plan Start: 05/13/25 09:22 Freq: NEEDED Status: Active Protocol: Document 05/13/25 10:35 AMB (Rec: 05/13/25 11:35 AMB [id number]) PT Summary Assessment and Plan Potential Rehabilitation Good Potential Status of Condition Evolving at Evaluation Summary Impairments Pain,Strength,Balance,Bed Mobility,Transfers,Gait Assessment Summary Susana had a R hip hemiarthroplasty (WBAT, posterior hip precautions) and is hoping to not need surgery on her R proximal humerus (nonweightbearing, no PROM or AROM x 2 weeks with follow up Xray). She needed MaxAx2 for bed mobility and sit to stand due to pain and precautions. Her blood pressure maintained well until standing for 2 min and then needed to get back into bed . Susana was hopeful to be able to return to [place], but would recommend SNF stay at this time due to need for MaxA for sit to stand and bed mobility and unable to tolerate gait. Goals Bed Mobility Goal Minimal Assistance Transfer Goal Minimal Assistance Gait Goal Minimal Assistance Gait Distance 50 Days to Meet Goals 7 Frequency of Treatment Frequency Of Twice a Day Treatment Treatment Plan Physical Therapy Bed Mobility Training,Transfer Training,Gait Training, Treatment Plan Therapeutic Exercise Precautions Posterior Hip No Hip Flexion > 90 degrees,No Hip Internal Rotation,No Precautions Hip Adduction Shoulder Precautions Sling Other Precautions WBAT R hip, nonweightbearing R shoulder no PROM or AROM R shoulder. Weight Bearing Status Weight Bearing Weight Bear as Tolerated Status Recommendations To Nursing Amount of Assist Mechanical Lift Needed Discharge Recommendations PT Discharge SNF Rehab Recommendations Transportation Needs Wheelchair/Cabulance at Discharge
[2025-05-13 11:56] VITALS: BP 105/60; PULSE 76; RESP 15; TEMP 36.9; O2SAT 96
--- NOTE | 2025-05-13 12:14 | CM.DPNOTE ---
DCP note CLIENT SERVICE REPRESENTATIVE reviewed EMR per team in morning rounds, plan for another transfusion tomorrow for anemia/low H&H. per OT/PT rec SNF. per admitting group, confirmed pt's [facility]. CLIENT SERVICE REPRESENTATIVE spoke with Ania Byrd CM ([phone]). reports with her [facility] we treat it like a [facility] plan and submit for auth with them and their team communicates with [facility]. should not have out of network cost. CLIENT SERVICE REPRESENTATIVE met with pt in room and introduced self and role. reviewed recs/DCP options. preference for SNF in short term before returning home to [facility]. dtr/other family from [facility] can help her return home when stable. has a cancer pill she takes every 21 days, reports she has it with her and is due in 12 days. preference is to remain in [place] close to her friend. CLIENT SERVICE REPRESENTATIVE faxed SNF auth request to [facility]. LVM for Ania to pursue SNF auth. CLIENT SERVICE REPRESENTATIVE spoke with Kiara from , kindly agreed to review. report that bc pt has her cancer pill it should be okay to administer over there. CLIENT SERVICE REPRESENTATIVE completed PASRR. P: [facility] auth pending, acceptance pending. anticipate dc to SNF for short term prior to return home to [facility] with family support. CM team will continue to follow closely for DCP coordination EDUARDO Crawford
--- NOTE | 2025-05-13 15:26 | PT.IPTN ---
Current Diagnoses Multiple myeloma not having achieved remission (05/10/25) Age-related osteoporosis with current pathological fracture, right femur, initial encounter for fracture (05/10/25) Unspecified displaced fracture of surgical neck of right humerus, initial encounter for closed fracture (05/10/25) Fracture of unspecified part of neck of right femur, initial encounter for closed fracture (05/10/25) Surgery Performed Operation Date: 05/11/25 10:15 Actual Procedures p Hip Hemiarthroplasty Ted(Right) - Kasandra Arriola MD Physical Therapy Treatment Note M2 PT-IP Current Condition Start: 05/13/25 09:22 Freq: NEEDED Status: Active Protocol: Document 05/13/25 10:35 AMB (Rec: 05/13/25 11:35 AMB [id number]) Physical Therapy Current Condition Current Condition Evaluation Date 05/13/25 Treatment Diagnosis R proximal humerus fx, R femoral neck fx with hemiarthorplasty Onset Date 05/11/25 M3 PT-IP Subjective Start: 05/13/25 09:22 Freq: NEEDED Status: Active Protocol: Document 05/13/25 15:17 AMB (Rec: 05/13/25 15:26 AMB [id number]) Subjective Physical Therapy Visit Type Type Treatment Note Visit Start Time 14:40 Visit Stop Time 15:20 Physical Therapy Visit Comments Patient Comments Pt states she just got a pain medication 5 minutes ago M4 PT-IP Mobility and Gait Start: 05/13/25 09:22 Freq: NEEDED Status: Active Protocol: Document 05/13/25 15:17 AMB (Rec: 05/13/25 15:26 AMB [id number]) PT-Bed Mobility Assessment Rolling Type of Rolling Log Rolling,Roll to Left Level of Assist Maximal Assistance,1 Person Assistance PT-Transfer Assessment Comments Mobility Comments Susana attempted bed mobility but despite PT trying to time treatment with pain medication, patient was having pain with rolling so told PT to stop. PT offered to come back later but patient had a visitor and asked to go over exercises so that she can visit and then get some rest. M5 PT-IP Objective Assessments Start: 05/13/25 09:22 Freq: NEEDED Status: Active Protocol: Document 05/13/25 10:35 AMB (Rec: 05/13/25 11:35 AMB [id number]) Orientation Orientation/Cognition Level of Alertness Alert Strength Lower Extremity Strength Assessment Bilaterally Impaired Hip 2 Knee 2 Ankle 4 M6 PT-IP Treatment Start: 05/13/25 09:22 Freq: NEEDED Status: Active Protocol: Document 05/13/25 15:17 AMB (Rec: 05/13/25 15:26 AMB [id number]) Physical Therapy Treatment Exercises Exercises Ankle Pumps,Gluteal Sets,Quad Sets,Heel Slides,Supine Hip Abduction Education Education Provided Precautions,Weight Bearing Status M7 PT-IP Assessment and Plan Start: 05/13/25 09:22 Freq: NEEDED Status: Active Protocol: Document 05/13/25 15:17 AMB (Rec: 05/13/25 15:26 AMB [id number]) PT Summary Assessment and Plan Summary Impairments Pain,Strength,Balance,Bed Mobility,Transfers,Gait Assessment Summary Susana has a number of chronic pain issues for which she has been taking pain medication for a number of years, this may be impacting her pain tolerance and overall pain as she was unable to tolerate bed mobility today. She was able to tolerate bed exercises and we reviewed her precautions as well. Goals Bed Mobility Goal Minimal Assistance Transfer Goal Minimal Assistance Gait Goal Minimal Assistance Gait Distance 50 Days to Meet Goals 7 Frequency of Treatment Frequency Of Twice a Day Treatment Treatment Plan Physical Therapy Bed Mobility Training,Transfer Training,Gait Training, Treatment Plan Therapeutic Exercise Precautions Posterior Hip No Hip Flexion > 90 degrees,No Hip Internal Rotation,No Precautions Hip Adduction Shoulder Precautions Sling Other Precautions WBAT R hip, nonweightbearing R shoulder no PROM or AROM R shoulder. Weight Bearing Status Weight Bearing Weight Bear as Tolerated Status Recommendations To Nursing Amount of Assist Mechanical Lift Needed Discharge Recommendations PT Discharge SNF Rehab Recommendations Transportation Needs Wheelchair/Cabulance at Discharge - PT assist 2
[2025-05-13 15:47] VITALS: BP 113/56; PULSE 80; RESP 18; TEMP 37.2; O2SAT 97
[2025-05-13 21:19] VITALS: BP 125/65; PULSE 90; RESP 18; TEMP 37.5; O2SAT 96
[2025-05-14 00:25] VITALS: BP 118/62; PULSE 88; RESP 18; TEMP 36.9; O2SAT 95
[2025-05-14 05:09] LABS: Hematocrit 22.8 % (36-46); Hemoglobin 7.9 g/dL (12.0-16.0); Mean Corpuscular HGB Conc 34.6 % (30-36); Mean Corpuscular Hemoglobin 32.9 PG (26-34); Mean Corpuscular Volume 95.1 fL (80-100); Platelet Count 81 X10^3/uL (150-400)
[2025-05-14 05:10] VITALS: BP 116/65; PULSE 83; RESP 16; TEMP 36.6; O2SAT 97
[2025-05-14] MEDS: LEVOTHYROXINE 75 MCG TABLET PO (05:37)
[2025-05-14 06:01] LABS: Blood Urea Nitrogen 14 mg/dL (7-17); Calcium 7.8 mg/dL (8.4-10.2); Carbon Dioxide 30 mmol/L (22-32); Chloride 101 mmol/L (98-107); Estimated Glomerular Filt Rate > 60 mL/min (>60); Glucose 95 mg/dL (70-99); HEMOLYSIS < 15 (0-50); Potassium 3.4 mmol/L (3.4-5.1); Sodium 133 mmol/L (137-145)
[2025-05-14 07:00] VITALS: BP 122/66; PULSE 86; RESP 16; TEMP 37.1; O2SAT 96
--- NOTE | 2025-05-14 08:30 | P.DS_ITS ---
History of Present Illness History of Present Illness Date Patient Seen: 05/14/25 Chief complaint: Fall, R Shoulder Pain Narrative: This is a pleasant 79-year-old female with history of multiple myeloma and hypothyroidism who is visiting a friend in [place]. She lives in the [place] area. She had a ground level fall and broke her right hip and proximal humerus. The patient was given pain medication in the emergency department, and Orthopedics was consulted. The plan is for operative repair with a hemiarthroplasty on May 11. The patient will be nothing by mouth at midnight. She denies any other injuries or recent illnesses or symptoms. She does note that she was do not resuscitate. She was 2 daughters in [place]. Discharge Providers Provider Date of admission: 05/10/25 16:14 Discharge Date: 05/14/25 Primary care physician: PCP in [place], [place] Consults: 05/10/25 15:31 Consult to Hospitalist Service Stat Comment: Consulting Provider: Dimitris Boston Reason for consultation: surgical hip, humeral Fx, Fl[place] Has provider been notified: Yes 05/10/25 15:32 Consult to Orthopedic Surgery Stat Comment: Consulting Provider: Kasandra Arriola Reason for consultation: hip fx, humeral fx Has provider been notified: Yes 05/11/25 14:35 Consult to Discharge Planning Routine Comment: Consult to Occupational Therapy Evaluate & Treat Comment: Physician Instructions: Evaluate and treat Consult to Physical Therapy Evaluate & Treat Comment: Posterior hip precautions Physician Instructions: post op FIDE protocol Discharge provider: Laurel Wilkinson MD Summary Hospital Course Hospital Course: 1. Right femoral neck fracture, S/P FIDE 05/11, no complications. 2. Right humerus fracture, present on admission and active. Sling. 3. Blood loss anemia from fracture, new and active. 1 PRBC 05/12. Final HGB stable at 8.9. Start Iron. 3. Ground level fall prior to admission 4. Multiple myeloma 5. Hypothyroidism Plan: -Continue Hydrocodone prn and BID chronic MS Contin medications. -Lovenox for 4 weeks -Shoulder sling. -usp facility for rehabilitation. -physical therapy, occupational therapy -Speech Therapy for cognition DISHA: 05/14, [facility]. Status at Discharge Cognitive/behavioral status at discharge: at baseline, oriented Functional status at discharge: wheelchair bound Overall status at discharge: patient is progressing back to baseline Exam Vital Signs (past 8 hours): - 05/14/25 05:10 05/14/25 07:00 Temperature 97.9 F 98.7 F Pulse Rate 83 86 Respiratory Rate 16 16 Blood Pressure 116/65 122/66 Pulse Oximetry 97 96 Oxygen Flow Rate 0 Oxygen Delivery Method Room Air Oxygen Flow Rate 0 Narrative Exam Narrative: The hemoglobin has stabilized at 7.9 today. The platelets are up to 81. The metabolic panel is normal. She tells me that she was visiting [facility] while visiting from [facility] and will be returning there eventually where her 2 adult daughters live. Heart is regular rate and rhythm without murmur Lungs are clear to auscultation bilaterally Extremities have no ankle edema Right upper arm in a sling Right hip fracture surgical incisions intact. Objective Labs 05/14/25 04:58 05/14/25 04:58 Labs: Laboratory Results - last 24 hr 05/14/25 04:58 WBC 4.2 L RBC 2.40 L Hgb 7.9 L Hct 22.8 L MCV 95.1 MCH 32.9 MCHC 34.6 RDW 17.7 H Plt Count 81 L Sodium 133 L Potassium 3.4 Chloride 101 Carbon Dioxide 30 BUN 14 Creatinine 0.66 Estimated GFR > 60 BUN/Creatinine Ratio 21.2 Glucose 95 Calcium 7.8 L PFSH Social History household members: none lives independently: Yes Smoking Status: Never smoker alcohol intake: current Discharge Plan Discharge Plan Patient Disposition: SNF Transfer to: [facility] Under care of provider: Facility Automotive Lube Technician Discharge orders & Medications Prescriptions: New acetaminophen 325 mg Tablet 650 mg PO Q6H PRN (Reason: Fever/Mild Pain (1-3)) Qty: 60 0RF polyethylene glycol 3350 17 gram Powder In Packet 17 gm PO DAILY PRN (Reason: Constipation) Qty: 30 0RF hydrocodone-acetaminophen 5-325 mg Tablet 1 tab PO Q4HR PRN (Reason: Pain, Moderate (4-6)) Qty: 30 0RF hydrocodone-acetaminophen 5-325 mg Tablet 2 tab PO Q4H PRN (Reason: Pain, Severe (7-10)) Qty: 15 0RF baclofen 10 mg Tablet 5 mg PO Q8H PRN (Reason: spasms) Qty: 30 0RF docusate sodium 100 mg Capsule 100 mg PO BID Qty: 60 0RF morphine 15 mg Tablet Extended Release 15 mg PO BID Qty: 60 0RF ondansetron 4 mg Tablet,Disintegrating 4 mg PO Q4HR PRN (Reason: Nausea) Qty: 30 0RF enoxaparin [Lovenox] 40 mg/0.4 mL Syringe 40 mg SUBCUT DAILY Qty: 28 0RF ferrous sulfate 325 mg (65 mg iron) tablet 325 mg PO DAILY Qty: 30 0RF ascorbic acid (vitamin C) 500 mg capsule 500 mg PO DAILY Qty: 30 0RF Continued levothyroxine 75 mcg tablet 75 mcg PO DAILY lenalidomide 10 mg capsule PO Patient Comments: take 1 cap daily x21 days then stopped for 7 days---at time of med reconciliation pt had 4 pills left in bottle Discontinued hydrocodone-acetaminophen 5-325 mg tablet PO Patient Comments: PRN morphine 15 mg tablet 15 mg PO BID PRN (Reason: pain) morphine 30 mg tablet PO Patient Comments: divided into 2 doses; am and pm admin Diet/Activity/Treatments Diet: Regular Liquid consistency: Normal/Thin Food texture: Regular [facility] Rehab type: Physical therapy, Occupational therapy and Speech therapy Visit Report/Discharge Packet Stand Alone Forms: Patient Portal/API Quality VTE Deep Vein Thrombosis/Pulmonary Embolism Present on Admission: No
[2025-05-14] MEDS: MORPHINE ER 15 MG TABLET PO (08:53)
[2025-05-14] MEDS: DOCUSATE 100 MG CAPSULE PO (08:53)
[2025-05-14] MEDS: HYDROCODONE/ACET 5/325 TABLET 1 TAB PO ×2 (09:44→13:32)
[2025-05-14] MEDS: POTASSIUM CHLORIDE 20 MEQ TAB 40 MEQ PO (09:45)
--- NOTE | 2025-05-14 10:35 | PT.IPTN ---
Current Diagnoses Multiple myeloma not having achieved remission (05/10/25) Age-related osteoporosis with current pathological fracture, right femur, initial encounter for fracture (05/10/25) Unspecified displaced fracture of surgical neck of right humerus, initial encounter for closed fracture (05/10/25) Fracture of unspecified part of neck of right femur, initial encounter for closed fracture (05/10/25) Surgery Performed Operation Date: 05/11/25 10:15 Actual Procedures p Hip Hemiarthroplasty Ted(Right) - Kasandra Arriola MD Physical Therapy Treatment Note M2 PT-IP Current Condition Start: 05/13/25 09:22 Freq: NEEDED Status: Active Protocol: Document 05/13/25 10:35 AMB (Rec: 05/13/25 11:35 AMB [id number]) Physical Therapy Current Condition Current Condition Evaluation Date 05/13/25 Treatment Diagnosis R proximal humerus fx, R femoral neck fx with hemiarthorplasty Onset Date 05/11/25 M3 PT-IP Subjective Start: 05/13/25 09:22 Freq: NEEDED Status: Active Protocol: Document 05/14/25 10:35 AB (Rec: 05/14/25 13:16 AB [id number]) Subjective Physical Therapy Visit Type Type Treatment Note Visit Start Time 10:35 Visit Stop Time 11:10 Number of BUSINESS SYSTEMS CONSULTANT Visits 0 Physical Therapy Visit Comments Patient Comments agreed to get up Therapy Pain Assessment Pain When Pain Assessed At Rest Pain Present Pain Present Pain Reported Location right shoulder Intensity 2 Scale Used Numeric (0 - 10) Pain Management Distraction,Modification of Treatment,Re-positioning, Techniques Timing of Activity with Medications right hip Intensity 2 Scale Used Numeric (0 - 10) Pain Management Distraction,Modification of Treatment,Re-positioning, Techniques Timing of Activity with Medications M4 PT-IP Mobility and Gait Start: 05/13/25 09:22 Freq: NEEDED Status: Active Protocol: Document 05/14/25 10:35 AB (Rec: 05/14/25 13:16 AB [id number]) PT-Bed Mobility Assessment Supine to Sit Supine to Sit Maximum Assistance,1 Person Assistance,2 Person Assistance,Head of Bed Elevated Scooting Scooting to Edge of Maximum Assistance Bed PT-Transfer Assessment Sit to and From Stand Sit to and from Maximum Assistance,2 Person Assistance,Use of Upper Stand Extremities Equipment Transfer Assistive Gait Belt,Front Wheeled Walker Device Orthotic/Prosthetic No Devices or Brace: Transfers Transfer Destination Chair Transfer Technique Stand Step Pivot Transfer Ability Level of Assist Maximum Assistance,2 Person Assistance,Use of Upper Extremities Comments Mobility Comments pt in bed and agreeable to do PT. reviewed R hip posterior precautions and NWB on RUE. pt completed supine to sit max A x 1-2 and max cues with HOB elevated. pt with increase posterior trunk lean needing CGA to min A for standing balance. re-adjusted R sling on the. current sling is small for pt. pt completed sit to stand max A x 2 and max cues and pivot transfer using hemiwalker to chair max A x 1-2 and max cues. pt with difficulty elevating BLE to step and just shuffles BLE to transfers. pt agreed to stay up on the chair. provided pt with appropriate fitting sling and left for OT to adjust. Left pt with OT. Gait Assessment Comments Gait Comments unable at this time M5 PT-IP Objective Assessments Start: 05/13/25 09:22 Freq: NEEDED Status: Active Protocol: Document 05/13/25 10:35 AMB (Rec: 05/13/25 11:35 AMB [id number]) Orientation Orientation/Cognition Level of Alertness Alert Strength Lower Extremity Strength Assessment Bilaterally Impaired Hip 2 Knee 2 Ankle 4 M6 PT-IP Treatment Start: 05/13/25 09:22 Freq: NEEDED Status: Active Protocol: Document 05/14/25 10:35 AB (Rec: 05/14/25 13:16 AB [id number]) Physical Therapy Treatment Education Education Provided Precautions,Weight Bearing Status,Safety M7 PT-IP Assessment and Plan Start: 05/13/25 09:22 Freq: NEEDED Status: Active Protocol: Document 05/14/25 10:35 AB (Rec: 05/14/25 13:16 AB [id number]) PT Summary Assessment and Plan Potential Rehabilitation Fair Potential Summary Impairments Pain,ROM,Strength,Balance,Coordination,Sensation,Tone, Cognition,Bed Mobility,Transfers,Gait,Activity Tolerance Progress Towards Slow Progress due to Pain,Slow Progress due to Medical Goals Issues,Slow Progress due to Activity Tolerance Assessment Summary pt improving slowly and was able to pivot transfer to chair using hemiwalker requiring max A x1- 2 and max cues. pt will require SNF rehab to improve strength and mobility. Goals Bed Mobility Goal Minimal Assistance Transfer Goal Minimal Assistance Gait Goal Minimal Assistance,Ted Walker Gait Distance 50 Days to Meet Goals 7 Frequency of Treatment Frequency Of Twice a Day Treatment Treatment Plan Physical Therapy Bed Mobility Training,Transfer Training,Gait Training, Treatment Plan Therapeutic Exercise,Balance Retraining,Post Op Education,Discharge Planning,Hot or Cold Pack, Neuromuscular Re-ed,Manual Therapy Precautions Posterior Hip No Hip Flexion > 90 degrees,No Hip Internal Rotation,No Precautions Hip Adduction Shoulder Precautions Sling Weight Bearing Status Allowed Weight RUE: NWB Bearing Amount ( RLE: WBAT enter % or #) (%) Recommendations To Nursing Amount of Assist 2 Person Assist Needed Discharge Recommendations PT Discharge SNF Rehab Recommendations Transportation Needs Wheelchair/Cabulance at Discharge - PT assist 2
--- NOTE | 2025-05-14 10:54 | PC.NURSE ---
Day shift - Pt refused to have maldonado catheter removed, I educated the Pt on risk of infecton and Pt states will take the risk.
--- NOTE | 2025-05-14 11:52 | OT.IP.TRT ---
Current Diagnoses Multiple myeloma not having achieved remission (05/10/25) Age-related osteoporosis with current pathological fracture, right femur, initial encounter for fracture (05/10/25) Unspecified displaced fracture of surgical neck of right humerus, initial encounter for closed fracture (05/10/25) Fracture of unspecified part of neck of right femur, initial encounter for closed fracture (05/10/25) Surgery Performed Operation Date: 05/11/25 10:15 Actual Procedures p Hip Hemiarthroplasty Ted(Right) - Kasandra Arriola MD Occupational Therapy Treatment Note M2 OT-IP Current Condition Start: 05/13/25 10:58 Freq: Status: Active Protocol: Document 05/13/25 10:25 [facility] (Rec: 05/13/25 11:17 [facility] Desktop) Occupational Therapy Current Condition Current Condition Evaluation Date 05/13/25 Treatment Diagnosis S/P R FIDE and Right humerus fracture Diagnosis Onset Date 05/10/25 Post Operative Precautions Posterior Hip No Hip Flexion > 90 degrees,No Hip Internal Rotation,No Precautions Hip Adduction Weight Bearing Status Weight Bearing Non-Weight Bearing Status Allowed Weight RUE NWB Bearing Amount ( enter % or #) (%) M3 OT- IP Subjective and Pain Start: 05/13/25 10:58 Freq: Status: Active Protocol: Document 05/14/25 12:22 [facility] (Rec: 05/14/25 12:31 [facility] Desktop) OT- Subjective Occupational Therapy Visit Type Type Treatment Note Visit Start Time 11:08 Visit Stop Time 11:52 Occupational Therapy Visit Comments Patient Comments Pt requesting to use the BSC. Patient/Caregiver TO get better. Goals OT Pain Assessment Pain When Pain Assessed At Rest Location right shoulder Pain Behaviors Facial Grimacing,Holding Area M4 OT- IP ADL's Start: 05/13/25 10:58 Freq: Status: Active Protocol: Document 05/14/25 12:22 [facility] (Rec: 05/14/25 12:31 [facility] Desktop) OT [id number] Comments OT Self-Feeding Not performed, will need assist with set-up. Comments OT ADL-Grooming General Evaluation Grooming Ability Standby Assistance Comments OT Grooming Comments Pt able to do while seated and needing set-up assist. OT ADL-Oral Care General Eval Oral Care Ability Standby Assistance Comments Oral Care Comments Pt able to do while set-up assist while seated. OT ADL-Dressing General Eval Upper Body Dressing Total Assistance Ability Lower Body Dressing Maximum Assistance,Total Assistance Ability Comments OT Dressing Comments Total assist to help change sling out to larger sling for better fit. Assist for all socks and brief management needs. OT ADL-Toileting General Evaluation Toileting Ability Maximum Assistance,Total Assistance Areas Needing Manage Clothing,Perform Perineal Hygiene Assistance Comments OT Toileting OT able to stand with pt with MAX AX 1 while nursing Comments aid assisting with hygiene and brief management needs. OT ADL-Bathing Comments OT Bathing Comments Sponge bath more appropriate at this time. M5 OT- IP IADL's Start: 05/13/25 10:58 Freq: Status: Active Protocol: Document 05/13/25 10:25 [facility] (Rec: 05/13/25 11:17 [facility] Desktop) OT-Instrumental Activities of Daily Living Home Safety Awareness Home Safety Comments Pt realizes that it would be best to go to skilled rehab. Medication Management Medication Prior pt able to do. Management Comments Money Management Money Management Prior pt was doing on her own. Comments Meal Preparation Meal Preparation Pt will need assist. 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 Comments M6 OT- IP Functional Cognition Start: 05/13/25 10:58 Freq: Status: Active Protocol: Document 05/14/25 12:22 [facility] (Rec: 05/14/25 12:31 [facility] Desktop) Cognitive Factors Limiting Selfcare Function Cognitive Comments Cognitive Assessment Pt able to states all her hip precautions. Pt still Comments needing reminder of RLE placement when coming to stand and sitting down. M7 OT- IP Mobility and Balance Start: 05/13/25 10:58 Freq: Status: Active Protocol: Document 05/14/25 12:22 [facility] (Rec: 05/14/25 12:31 [facility] Desktop) OT-Transfer Assessment Sit to and From Stand Sit to and from Maximum Assistance,1 Person Assistance Stand Transfers Transfer Ability Maximum Assistance,Total Assistance,2 Person Assistance Technique Transfer Destination Bed,Bedside Commode,Chair Comments Mobility Comments Transfer to [facility] with ted-walker MAX AX 2 and assist for weight shifting, balance, and to move the ted- walker. Pt mainly just shuffling her feet side to side. Transfer to bed MAX/TOtal Ax2 stand pivot and assist back to supine. OT- Balance Assessment Sitting Balance and Reactions Static Sitting Good Balance Ability Dynamic Sitting Fair Balance Ability Standing Balance and Reactions Static Standing Poor Balance Ability Dynamic Standing Poor Balance Ability M8 OT- IP Objective Assessments Start: 05/13/25 10:58 Freq: Status: Active Protocol: Document 05/13/25 10:25 [facility] (Rec: 05/13/25 11:17 [facility] Desktop) OT Gross Range of Motion Upper Extremity Range of Motion Assessment Right Impaired OT Strength Upper Extremity Strength Assessment Bilaterally Impaired Comments Strength Comments right NT due to humerus fx and NWB, LUE 4-/5 to 4/5 from proximal to distal. M9 OT- IP Assessment and Plan Start: 05/13/25 10:58 Freq: Status: Active Protocol: Document 05/14/25 12:22 [facility] (Rec: 05/14/25 12:31 [facility] Desktop) OT Summary Assessment and Plan Potential Rehabilitation Good Potential Analytic Complexity Moderate at Evaluation Summary OT Impairments Pain,Strength,Balance,Functional Mobility,Self-Feeding, Grooming,Dressing,Toileting,Bathing,Toilet Transfers, Shower Transfers,Activity Tolerance Progress Towards Progressing Toward Goals,Slow Progress due to Pain,Slow Goals Progress due to Activity Tolerance Assessment Summary Pt able to tolerate and participate in transfer only today with ted-walker and stand pivot MAX/Total A x2 to the BSC and back to bed. Able to change on pt's sling for the larger size for more appropriate fit. Pt looking to go to skilled rehab today. Goals Self-Feeding Goal Standby Assistance Grooming Goal Standby Assistance Dressing Goal Minimal Assistance Toileting Goal Standby Assistance Bathing Goal Minimal Assistance Toilet Transfer Goal Standby Assistance Shower Transfer Goal Contact Guard Assistance Days to Meet Goals 25 Frequency of Treatment Other frequency 5x/week Treatment Plan OT Treatment Plan ADL Training,Functional Mobility,Patient/Family Education,Discharge Planning Discharge Recommendations OT Discharge SNF Rehab Recommendations Transportation Needs Wheelchair/Cabulance at Discharge
--- NOTE | 2025-05-14 13:36 | PM.PNPO.1 ---
Subjective Subjective Date Patient Seen: 05/14/25 Time Patient Seen: 13:36 Interval history: Patient's pain is controlled with oral medication. Pain is localized to surgical site. Patient declines any new numbness or tingling at the surgical extremity. Patient denies any shortness of breath, dizziness, light-headedness, nausea, vomiting, fever or chills. Pain on right shoulder. No numbness or tingling of upper extremity. Exam Vital Signs (past 8 hours): - 05/14/25 07:00 Temperature 98.7 F Pulse Rate 86 Respiratory Rate 16 Blood Pressure 122/66 Pulse Oximetry 96 Oxygen Delivery Method Room Air Oxygen Flow Rate 0 Narrative Exam Narrative: 5/5 strength in hip flexors, quadriceps, hamstrings, DF, PF, EHL bilaterally. Sensation to light touch intact throughout BLE. Calves soft, compressible, nontender. Dressing placed intraoperatively CDI. right shoulder is ecchymotic as expected. Full range of motion at the wrist and fingers. Sensation intact to all 5 fat pads. Radial pulses intact. Objective Labs 05/14/25 04:58 05/14/25 04:58 Labs: Laboratory Results - last 24 hr 05/14/25 04:58 WBC 4.2 L RBC 2.40 L Hgb 7.9 L Hct 22.8 L MCV 95.1 MCH 32.9 MCHC 34.6 RDW 17.7 H Plt Count 81 L Sodium 133 L Potassium 3.4 Chloride 101 Carbon Dioxide 30 BUN 14 Creatinine 0.66 Estimated GFR > 60 BUN/Creatinine Ratio 21.2 Glucose 95 Calcium 7.8 L PFSH Social History household members: none lives independently: Yes Smoking Status: Never smoker alcohol intake: current Assessment & Plan Post-op Postoperative Procedures: Procedures Operation Date: 05/11/25 10:15 Actual Procedure Side Surgeon p Hip Hemiarthroplasty Ted Right Kasandra Arriola MD Postoperative day: 3 Postoperative plan: routine post-op care, ambulate and discharge Postoperative plan narrative: 1. Weightbear as tolerated right lower extremity with the assistive devices. Posterior hip precautions x6 weeks. The patient's incision is closed with the Dermabond skin glue. May shower with the Aquacel 2. Right proximal humerus fracture nonoperative treatment and sling. We will need a repeat x-ray in 1-2 weeks to check alignment. Keep arm in sling at all times except for hygiene. 3. DVT prophylaxis recommend chemical prophylaxis with subcutaneous Lovenox x4 weeks for immobility recent hip surgery and trauma and history of multiple myeloma. 4. Multimodal pain control. Discharge medications per hospitalist. Discharge per primary when stable. Dr. Arriola will see her at [facility] in [facility] [phone]--- 1-2 weeks out from injury for repeat radiographs and wound check. Time Spent With Patient Time with patient: less than 15 minutes Quality VTE Deep Vein Thrombosis/Pulmonary Embolism Present on Admission: No
--- NOTE | 2025-05-14 13:56 | CM.DPNOTE ---
DCP note SOAKING TANK WORKER reviewed EMR per provider, cleared to dc to SNF today. per [place], auth for SNF. auth number [id number]. per Kiara at , can accept transport at 1330 today. SOAKING TANK WORKER emailed scripts/signed meds/Dc sum/PASRR. placed meds/PASRR in chart. Updated RN/gave RN number. updated CUSTODIAL MANAGER. SOAKING TANK WORKER updated pt in room. answered questions. pt in agreement. plans to get stable enough to fly on a plane home to [facility] and resume SNF likely there. SOAKING TANK WORKER told pt she has to go through PCP once home. pt expressed understanding. P: dc today to at 1330. CM team will continue to follow as needed for DCP coordination EDUARDO [place]
== END 2025-05-14 13:50 | DRG 522 ==
LOC: ED 16:08 → AC 16:14
PROVIDERS: Orthopaedic Surgery Foot and Ankle Surgery; Admitting Provider Hospitalist; Emergency Provider Student in an Organized Health Care Education/Training Program; Referring Provider Student in an Organized Health Care Education/Training Program; Visit Provider Hospitalist
PROC: 0SRR0JZ Replacement of Right Hip Joint, Femoral Surface with Synthetic Substitute, Open Approach (ICD-10-PCS; CPT 27125; principal; 2025-05-11 10:15)
DX: M80.051A Age-related osteoporosis with current pathological fracture, right femur, initial encounter for fracture (principal); S42.211A Unspecified displaced fracture of surgical neck of right humerus, initial encounter for closed fracture; C90.00 Multiple myeloma not having achieved remission; D62 Acute posthemorrhagic anemia; E03.9 Hypothyroidism, unspecified; W18.30XA Fall on same level, unspecified, initial encounter; Z87.891 Personal history of nicotine dependence; Z66 Do not resuscitate; Z79.890 Hormone replacement therapy
CPT/HCPCS: 36415; 36430; 72170; 73030; 73060; 73080; 73502; 80048; 80053; 80320; 85014; 85018; 85025; 85027; 85610; 85730; 86850; 86900; 86901; 96374; 96375; 97110; 97162; 97166; 97530; 97535; 99284; C1776; P9016; C1713; J0131; J0171; J0666; J0690; J1100; J1171; J2405; J2704; J3010